=== PATIENT | male | born 1955 | race Caucasian/White ===

== ENCOUNTER → 2022-03-12 14:08 | Outpatient (CLI) | payer MEDICARE, OTHER, SELFPAY | PROVIDERS: Visit Provider Nurse Practitioner Family | DX: R00.2 Palpitations (principal); R00.1 Bradycardia, unspecified; I25.810 Atherosclerosis of coronary artery bypass graft(s) without angina pectoris; R60.9 Edema, unspecified; F17.200 Nicotine dependence, unspecified, uncomplicated; Z86.79 Personal history of other diseases of the circulatory system | CPT/HCPCS: 93270 ==

== ENCOUNTER → 2022-03-13 10:37 | Outpatient (CLI) | payer MEDICARE, OTHER, SELFPAY ==
--- NOTE | 2022-03-13 10:37 | CA_ITS ---
APPROVED REPORT EXAM: Comprehensive 2D, Doppler, and color-flow Echocardiogram Environmental Education Specialist: Heaven Roque RVT Ht: 5 ft 10 in Wt: 132lbs BSA: 1.75 BP: 142/79 mmHg Indications: A-FIB,SMOKER,FATIGUE,WPW,CAD 2D Dimensions LVOT 2.30 cm (M/F) 1.5-2.5 LA Volume 26.90 mL LA Volume Index 15.37 mL/m2 (M/F) 16-34 M-Mode Dimensions RVDd 2.21 cm (0.9-2.6) LA Diam 3.77 cm (1.9-4.0) LVDd 4.89 cm (3.5-5.7) Ao Diam 3.10 cm (2.0-3.7) LVDs 3.14 cm (3.5-5.7) IVSd 1.11 cm (0.6-1.1) PWd 0.71 cm (0.6-1.1) EF (Teich) 65.20% FS 35.80% EDV (Teich) 112.30 mL TAPSE 2.52 (<1.7) ESV (Teich) 39.10 mL LV Diastology E Decel Time 263.00 (160-240 msec) E/A Ratio 1.1 MED E' 11.60 (< 7 cm/sec) E'/MED E' Ratio 6.22 (>14) LAT E' 12.00 (<10 cm/sec) E/LAT E' Ratio 6.01 (>14) Aortic Valve LVOT Max 113.00 (70-110 cm/s) LVOT VTI 21.70 cm AoV Peak Flaco. 197.00 (50-130 cm/s) AO Peak GR. 15.50 mmHg AO Mean GR. 7.90 (<5 mmHg) AO VTI 38.34 (18-25 cm) JOSE (VTI) 2.35 (2.5-4.5 cm2) Mitral Valve MV E Max Flaco. 72.00 (40-130 cm/s) MV A Velocity 68.00 (40-130 cm/s) E/A Ratio 1.06 MV Decel. Time 263.00 (160-240 ms) MV PHT 77.00 ms Pulmonary Valve PV Peak Velocity 77.00 (50-150 cm/s) Tricuspid Valve TR P. Velocity 228.00 cm/s RAP Estimate 10.00 mmHg RVSP 30.90 mmHg Left Ventricle Left atrium is normal size left ventricle is normal size, estimated ejection fraction 55% with no regional wall motion abnormality, diastolic parameters are within normal range. Right Ventricle Right atrium and right ventricle are normal size and contractility. Aortic Valve Aortic valve is minimally thickened and fibrosed there is no aortic stenosis or aortic insufficiency. Mitral Valve Mitral valve grossly normal, there is trace mitral regurgitation. Tricuspid Valve Tricuspid valve grossly normal, there is trace tricuspid regurgitation, tricuspid regurgitation jet velocity is inadequate for calculation of the right ventricular systolic pressure. Pulmonic Valve Pulmonic valve is poorly visualized. Great Vessels Aortic root is normal size. Inferior vena cava is mildly dilated with normal inspiratory collapse. Pericardium No significant pericardial effusion noted. Conclusion 1. Normal left ventricular size, preserved left ventricular systolic function, estimated ejection fraction 55% with no regional wall motion abnormality, diastolic parameters are within normal range. 2. Trace mitral and tricuspid regurgitation. 3. No significant pericardial effusion noted 4. Inferior vena cava is mildly dilated with normal inspiratory collapse. Electronically signed by : Mehdi Webber MD 03/13/2022 14:59:55
== END ==
PROVIDERS: PCP Emergency Medicine; Visit Provider Emergency Medicine
DX: R00.2 Palpitations (principal); R00.1 Bradycardia, unspecified; I25.810 Atherosclerosis of coronary artery bypass graft(s) without angina pectoris; F17.200 Nicotine dependence, unspecified, uncomplicated; Z86.79 Personal history of other diseases of the circulatory system
CPT/HCPCS: 93306

== ENCOUNTER → 2022-03-18 07:29 | Outpatient (CLI) | payer MEDICARE, OTHER, SELFPAY ==
--- NOTE | 2022-03-18 07:36 | NM_ITS ---
APPROVED REPORT Exam: Nuclear Stress Test Indication: H/O TN, TOB USE, FM HX, PALPITATIONS Patient Location: Outpatient Stress Tech: Cristina Zelaya DE Tech:DEBORAH Kolb RT (R)(N)(M) Ht: 5 ft 10 in Wt: 130 lbs HR: 58 bpm BP: 143/75 mmHg BSA: 1.74 m2 TID: 1.29 BMI: 18.6 History: H/O TN, TOB USE, FM HX, PALPITATIONS Procedure: Patient received a 0.4 mg of intravenous Lexiscan, resting heart rate 58 bpm, resting blood pressure 143/75 mmHg, with Lexiscan maximum heart rate achived was 78 bpm which is Less than 85 % of the maximum predicted heart rate and blood pressure was 107/64 mmHg. With Lexiscan, patient denied any complaint of chest pain. Electrocardiogram Resting electrocardiogram showed sinus rhythm, with Lexiscan there is less than 1.[address] segment depression noted from the baseline EKG. The EKG portion of the Lexiscan is nondiagnostic. Cardiac Stress and Resting SPECT Images: Cardiac Stress and Resting SPECT images were obtained using technetium 99m Myoview 32.3 mCi stress and 9.89 mCi at rest. Gated SPECT for analysis of segmental wall motion and calculation of the ejection fraction also done. Prone images were also obtained. Cardiac stress and rest SPECT show uniform myocardial activity without segmental perfusion abnormality, computer derived ejection fraction is 49% with no regional wall motion abnormality, right ventricle is normal size and contractility. Conclusion: 1. The EKG portion of the Lexiscan is nondiagnostic. 2. No scintigraphic evidence of reversible ischemia seen, computer derived ejection fraction is 49% with no regional wall motion abnormality, right ventricle is normal size and contractility. 3. Normal Lexiscan Myoview study. Electronically signed by : Mehdi Webber MD 03/18/2022 19:08:38
--- NOTE | 2022-03-18 09:13 | CA_ITS ---
APPROVED REPORT Exam: Pharmacologic Technologist: Cristina Fernandez, Ht: 5 ft 0 in Wt: 132 lbs BSA: 1.56 m2 HR: 58 bpm BP: 143/75 mmHg Medical History Medications: Levothyroxine,,,,, Aspirin,,,,, Citalopram,,,,, Tylenol,,,,, Magnesium,,,,, Meclizine,,,,, Trazodone,,,,, Vitamin B1,,,,, Aripiprazole,,,,, Ferosul,,,,, Stress Test Details Test: LEXISCAN Reason for pharmacologic stress test: physical limitation. HR Resting HR: 56 bpm Max Heart Rate (APMHR): 155.188173 bpm Max HR Achieved: 79 bpm Target HR (85% APMHR): 131.345470 bpm % of APMHR: 50.97 Recovery HR: 74 bpm BP Resting BP: 143.0/75.0 mmHg Max BP: 143.0/75.0 mmHg Recovery BP: 118.0/67.0 mmHg ECG Resting ECG: sinus casey, 1* AVB, cannot R/O old septal ME, NS ST abnormality brief ectopic atrial rhythm noted. 1.6 second sinus pause noted. Clinical Exercise duration: 04:00 min Highest Stage Achieved: Stress ECG Conclusion Symptoms: None Arrhythmias/Ectopy: Occ PVC, occ PAC. insignificant sinus pauses. ST-T Changes: No significant changes. Conclusion: Unremarkable Lexiscan stress. Myoview images reported separately. Electronically signed by : Mehdi Webber MD 03/18/2022 19:06:12
== END ==
PROVIDERS: PCP Emergency Medicine; Visit Provider Nurse Practitioner Family
DX: F17.200 Nicotine dependence, unspecified, uncomplicated (principal); I25.810 Atherosclerosis of coronary artery bypass graft(s) without angina pectoris; R00.1 Bradycardia, unspecified; R00.2 Palpitations; Z86.79 Personal history of other diseases of the circulatory system; I25.2 Old myocardial infarction
CPT/HCPCS: 78452; 93017; A9502; J2785

== ENCOUNTER 2022-11-22 20:16 | Emergency (ER) | payer MEDICARE, OTHER, SELFPAY ==
--- NOTE | 2022-11-22 20:16 | CT_ITS ---
PROCEDURE INFORMATION: Exam: CT Cervical Spine Without Contrast Exam date and time: 11/22/2022 8:58 PM Age: 67 years old Clinical indication: Injury or trauma; Fall; Additional info: Fall, neck pain TECHNIQUE: Imaging protocol: Computed tomography of the cervical spine without contrast. Radiation optimization: All CT scans at this facility use at least one of these dose optimization techniques: automated exposure control; mA and/or kV adjustment per patient size (includes targeted exams where dose is matched to clinical indication); or iterative reconstruction. REPORTING DATA: Count of CT and Cardiac NM exams in prior 12 months: This patient has received 0 known CTs and 0 known cardiac nuclear medicine studies in the 12 months prior to the current study. COMPARISON: CT HEAD/BRAIN WO CON 11/22/2022 8:56 PM FINDINGS: Bones/joints: No acute fracture. Normal alignment. Moderate disc space narrowing and small endplate osteophytes at C4-C5. No significant disc bulge or herniation. No severe spinal canal stenosis. Multilevel facet and uncovertebral joint hypertrophy. Mild left-sided bony foraminal stenosis at C4-C5. Lungs: Small biapical blebs. Pleural spaces: Chronic appearing biapical pleural scarring. Soft tissues: Unremarkable. IMPRESSION: No acute findings.
--- NOTE | 2022-11-22 20:16 | CT_ITS ---
PROCEDURE INFORMATION: Exam: CT Abdomen And Pelvis With Contrast Exam date and time: 11/22/2022 9:02 PM Age: 67 years old Clinical indication: Injury or trauma; Fall; Additional info: Fall, left flank hematoma TECHNIQUE: Imaging protocol: Computed tomography of the abdomen and pelvis with contrast. Radiation optimization: All CT scans at this facility use at least one of these dose optimization techniques: automated exposure control; mA and/or kV adjustment per patient size (includes targeted exams where dose is matched to clinical indication); or iterative reconstruction. Contrast material: ISOVUE; Contrast volume: 75 ml; Contrast route: IV; REPORTING DATA: Count of CT and Cardiac NM exams in prior 12 months: This patient has received 0 known CTs and 0 known cardiac nuclear medicine studies in the 12 months prior to the current study. COMPARISON: No relevant prior studies available. FINDINGS: Liver: Normal. No mass. Gallbladder and bile ducts: Calcified gallstones. Pancreas: Normal enhancement. No ductal dilation. Spleen: No splenomegaly. Adrenal glands: No mass. Kidneys and ureters: Renal cysts measuring up to 13 mm. No hydronephrosis. Stomach and bowel: Diverticulosis coli without evidence for diverticulitis. Appendix: No evidence of appendicitis. Intraperitoneal space: No significant fluid collection. No free air. Vasculature: Calcified aortic atherosclerosis. No aneurysm. Lymph nodes: No enlarged lymph nodes. Urinary bladder: Urinary bladder wall appears thickened measuring 6 mm. Reproductive: Prostate calcifications. Bones/joints: Degenerative changes. No acute fracture. Soft tissues: Large hematoma of overlying the left flank measuring approximally 5.5 x 12.9 x 13.0 cm with multiple serpiginous hyperdense foci. 8 mm pericardial effusion which is partially visualized. IMPRESSION: 1. Large hematoma of overlying the left flank with active extravasation. 2. Urinary bladder wall appears thickened for which correlation with UA is recommended. 3. Calcified gallstones. 4. Diverticulosis coli without evidence for diverticulitis. 5. 8 mm pericardial effusion which is partially visualized.
--- NOTE | 2022-11-22 20:16 | CT_ITS ---
PROCEDURE INFORMATION: Exam: CT Head Without Contrast Exam date and time: 11/22/2022 8:56 PM Age: 67 years old Clinical indication: Injury or trauma; Fall; Additional info: Fall, head injury TECHNIQUE: Imaging protocol: Computed tomography of the head without contrast. Radiation optimization: All CT scans at this facility use at least one of these dose optimization techniques: automated exposure control; mA and/or kV adjustment per patient size (includes targeted exams where dose is matched to clinical indication); or iterative reconstruction. REPORTING DATA: Count of CT and Cardiac NM exams in prior 12 months: This patient has received 0 known CTs and 0 known cardiac nuclear medicine studies in the 12 months prior to the current study. COMPARISON: No relevant prior studies available. FINDINGS: Brain: Normal. No hemorrhage. Unremarkable white matter. No mass effect. Cerebral ventricles: No ventriculomegaly. Paranasal sinuses: Chronic bilateral maxillary and ethmoid sinus disease. Mastoid air cells: Visualized mastoid air cells are well aerated. Bones/joints: Unremarkable. No acute fracture. Soft tissues: Unremarkable. IMPRESSION: 1. No acute intracranial abnormality. 2. Chronic sinus disease.
[2022-11-22 20:18] VITALS: BP 143/95; PULSE 56; RESP 20; TEMP 36.6; O2SAT 95; BMI 19.3
--- NOTE | 2022-11-22 20:22 | HMH.EDGENADL ---
Discharge Plan Disposition Patient Disposition: Xfer Other Condition: Serious Prescriptions Prescriptions: No Action trazodone 50 mg tablet 50 mg PO HS thiamine HCl (vitamin B1) 100 mg tablet 100 mg PO DAILY meclizine 12.5 mg tablet 12.5 mg PO TID PRN levothyroxine 75 mcg tablet 75 mcg PO DAILY citalopram 20 mg tablet 20 mg PO DAILY magnesium oxide 400 mg (241.3 mg magnesium) tablet 400 mg PO BID ferrous sulfate [FeroSul] 325 mg (65 mg iron) tablet 325 mg PO DAILY acetaminophen 500 mg capsule 500 mg PO Q6H PRN aripiprazole 10 mg tablet 10 mg PO DAILY aspirin [Adult Low Dose Aspirin] 81 mg tablet,delayed release (DR/EC) 81 mg PO DAILY Qty: 30 2RF Referrals Follow up/Referrals: Joel Boggs MD [Primary Care Provider] - See instructions Clinical Impressions Clinical Impression: Hematoma, Trauma, Acute flank pain, Ground-level fall Stand Alone Forms Stand Alone Forms: Transfer Record - ED Discharge ED Provider: Elsa Salgado Adult HPI General Chief complaint: Fall Stated complaint: fall Time Seen by Provider: 11/22/22 20:16 Mode of Arrival: EMS Source of Information: Patient and EMS Limitations: No Limitations Description of Symptoms (Recalled from ER Triage Doc. by RN): EMS reports pt fell around 1730. pt presents with a small football sized, firm raised area on his L flank. pt c/o lower L back pain. pt has a lack to the back of his head, lack to the R elbow, and a skin tear on his RFA. EMS states there was no LOC. History of Present Illness HPI narrative: 67-year-old male presenting to the emergency department with low back, flank pain after a fall. Incident happened earlier today. He was walking on gravel when he lost his balance and fell backwards. He landed on his buttocks and his low back. Struck his head, but denies loss of consciousness. Over the last hour he has developed worsening pain that is located on the left flank and low back. He can feel an area of swelling. Just above his hip bone. No nausea or vomiting. He was able to eat dinner tonight. No medication prior to arrival. He arrives with EMS. Denies any difficulty moving his legs or walking. No neck pain, pain in his arms. Related Data Home Medications Medication Instructions Recorded Confirmed acetaminophen 500 mg capsule 500 mg PO Q6H PRN 03/12/22 03/12/22 aripiprazole 10 mg tablet 10 mg PO DAILY 03/12/22 03/12/22 citalopram 20 mg tablet 20 mg PO DAILY 03/12/22 03/12/22 ferrous sulfate 325 mg (65 mg 325 mg PO DAILY 03/12/22 03/12/22 iron) tablet (FeroSul) levothyroxine 75 mcg tablet 75 mcg PO DAILY 03/12/22 03/12/22 magnesium oxide 400 mg (241.3 mg 400 mg PO BID 03/12/22 03/12/22 magnesium) tablet meclizine 12.5 mg tablet 12.5 mg PO TID PRN 03/12/22 03/12/22 thiamine HCl (vitamin B1) 100 mg 100 mg PO DAILY 03/12/22 03/12/22 tablet trazodone 50 mg tablet 50 mg PO HS 03/12/22 03/12/22 Previous Rx's Medication Instructions Recorded aspirin 81 mg tablet,delayed 81 mg PO DAILY #30 tabs 03/12/22 release (Adult Low Dose Aspirin) Allergies Allergy/AdvReac Type Severity Reaction Status Date / Time No Known Allergies Allergy Verified 11/22/22 20:22 [facility] Disclaimer: The information contained in this section may have been updated after the patient was seen, as this information can be updated by other users. Medical History (Updated 11/22/22 @ 22:02 by Elsa Salgado DO) Afib CAD (coronary artery disease), autologous vein bypass graft Palpitations Auxzl-Kzfocaapn-Fqshf (WPW) syndrome Social History (Updated 03/12/22 @ 15:13 by Doris Huff APRN) Smoking Status: Current every day smoker alcohol intake: never current occupational status: disabled Travel in the last 8 weeks: None ROS Obtained: Yes All systems reviewed & no additional complaints except as documented Constitutional Constitutional: Denies chills, De
[2022-11-22 20:37] LABS: Basophils # 0.1 K/mm3 (0-0.2); Basophils % 0.4 % (0.1-2.0); Eosinophils # 0.3 K/mm3 (0.0-0.4); Eosinophils % 1.5 % (0.1-12.0); Hematocrit 42.6 % (42.0-52.0); Hemoglobin 13.5 g/dL (14.1-18.0); Lymphocytes # 6.2 K/mm3 (0.7-4.5); Lymphocytes % 35.3 % (10-50); Mean Corpuscular HGB Conc 31.6 g/dL (31.8-35.4); Mean Corpuscular Hemoglobin 27.2 pg (27.0-31.2); Mean Corpuscular Volume 86.2 fl (80-94); Mean Platelet Volume 7.9 fl (7.4-10.4); Monocytes # 0.9 K/mm3 (0.1-1.0); Monocytes % 5.1 % (1.7-9.3); Neutrophils # 10.1 K/mm3 (1.8-7.8); Neutrophils % 57.7 % (37.0-80.0); Platelet Count 272 K/mm3 (142-424); Red Blood Count 4.94 M/mm3 (4.60-6.20); Red Cell Distribution Width 16.4 % (11.5-17.5); White Blood Count 17.5 K/mm3 (4.8-10.8)
[2022-11-22 20:40] LABS: MANUAL DIFFERENTIAL MANUAL DIFFERENTIAL (MANUAL DIFF)
[2022-11-22 20:43] LABS: Chloride 91 mmol/L (98-107); Potassium 4.4 mmoL/L (3.5-5.1); Sodium 133 mmol/L (136-145)
[2022-11-22 20:46] LABS: Alanine Aminotransferase 19 U/L (12-78); Albumin Level 4.3 g/dl (3.5-5.0); Albumin/Globulin Ratio 1.6 (1.1-1.8); Alkaline Phosphatase 88 U/L (38-126); Anion Gap 15.4 mEq/L (5-15); Aspartate Amino Transferase 29 U/L (17-59); Bilirubin,Total 0.2 mg/dl (0.2-1.3); Blood Urea Nitrogen 11 mg/dl (9-20); Carbon Dioxide 31 mmol/L (22.0-30.0); Creatinine Clearance Estimated 63 mL/min (50-200); Estimated Glomerular Filt Rate 84 ml/min (>60); GFR (African American) 102 ML/MIN (>60); Globulin 2.7 g/dL (1.3-3.2); INR 1.01 (0.9-1.1); Prothrombin Time 10.9 seconds (10.1-12.5)
[2022-11-22 20:47] LABS: Calcium 9.3 mg/dl (8.4-10.2); Glucose 115 mg/dl (74-100)
[2022-11-22 20:58] LABS: Eosinophils % 1 % (0-3); Lymphocytes % 39 % (10-50); Monocytes % 2 % (2-9); Neutrophils % 58 % (42-76); Platelet Estimate Normal; RBC Morphology Normal; Total Cells Counted 100
--- NOTE | 2022-11-22 21:23 | PC.NURSE ---
call to transfer center, will await call back
--- NOTE | 2022-11-22 21:32 | PC.NURSE ---
ED doctor on phone with [facility]
--- NOTE | 2022-11-22 21:32 | PC.NURSE ---
Dr. Hendricks speaking with [facility]
--- NOTE | 2022-11-22 21:34 | PC.NURSE ---
[facility] notified of need for transfer to [facility]
--- NOTE | 2022-11-22 21:51 | PC.NURSE ---
[facility]erm[facility] notified of patient being transferred to [facility]
[2022-11-22 22:05] VITALS: BP 140/90; PULSE 58; RESP 18; TEMP 36.6; O2SAT 96
== END 2022-11-22 22:09 | disposition other institution (70) ==
PROVIDERS: Emergency Provider Emergency Medicine; PCP Emergency Medicine
DX: S30.1XXA Contusion of abdominal wall, initial encounter (principal); M54.2 Cervicalgia; M54.50 Low back pain, unspecified; I48.91 Unspecified atrial fibrillation; I25.719 Atherosclerosis of autologous vein coronary artery bypass graft(s) with unspecified angina pectoris; I45.6 Pre-excitation syndrome; F17.200 Nicotine dependence, unspecified, uncomplicated; W18.30XA Fall on same level, unspecified, initial encounter
CPT/HCPCS: 70450; 72125; 74177; 80053; 85007; 85025; 85610; 96374; 99285; Q9967

== ENCOUNTER 2024-04-08 16:03 | Emergency (ER) | payer MEDICARE, OTHER, SELFPAY ==
[2024-04-08] VITALS (8 sets, daily range): BP systolic 110–148; BP diastolic 65–78; PULSE 57–64; RESP 16–20; TEMP 37.4; O2SAT 98–100; BMI 15.7
--- NOTE | 2024-04-08 16:07 | PC.NURSE ---
DR BALLARD AT BEDSIDE
--- NOTE | 2024-04-08 16:08 | PC.NURSE ---
Updated Sulema on pts whereabouts
--- NOTE | 2024-04-08 16:13 | CT_ITS ---
PROCEDURE INFORMATION: Exam: CT Cervical Spine Without Contrast Exam date and time: 04/08/2024 4:25 PM Age: 68 years old Clinical indication: Injury or trauma; Fall; Blunt trauma; Additional info: Fall, head trauma TECHNIQUE: Imaging protocol: Computed tomography of the cervical spine without contrast. Radiation optimization: All CT scans at this facility use at least one of these dose optimization techniques: automated exposure control; mA and/or kV adjustment per patient size (includes targeted exams where dose is matched to clinical indication); or iterative reconstruction. COMPARISON: CT CERVICAL SPINE WO CON 09/24/2022 20:58 FINDINGS: Bones: Multilevel degenerative changes of the cervical spine producing multiple levels of mild spinal canal stenosis. Oral cavity: There is a 6 x 5.9 cm soft tissue mass centered in the left process description writer space. Significant remodeling, erosions, and destruction of portions of left mandibular ramus. There are acute angulations of portions of the bone. Lungs: Bilateral apical scarring. Soft tissues: Unremarkable. IMPRESSION: 1. No acute fracture or malalignment of the cervical spine. 2. There is a 6 x 5.9 cm soft tissue mass centered in the left process description writer space. Significant remodeling, erosions, and destruction of portions of left mandibular ramus. There are acute angulations of portions of the bone. This is worrisome for malignant tumor with pathologic mandibular fracture.
--- NOTE | 2024-04-08 16:13 | ED_ITS ---
Discharge Plan Disposition Patient Disposition: Home, Self-Care Prescriptions Prescriptions: New sulfamethoxazole-trimethoprim [Bactrim] 400-80 mg tablet 1 tab PO BID 7 Days Qty: 14 0RF No Action trazodone 50 mg tablet 50 mg PO HS thiamine HCl (vitamin B1) 100 mg tablet 100 mg PO DAILY meclizine 12.5 mg tablet 12.5 mg PO TID PRN levothyroxine 75 mcg tablet 75 mcg PO DAILY citalopram 20 mg tablet 20 mg PO DAILY magnesium oxide 400 mg (241.3 mg magnesium) tablet 400 mg PO BID ferrous sulfate [FeroSul] 325 mg (65 mg iron) tablet 325 mg PO DAILY acetaminophen 500 mg capsule 500 mg PO Q6H PRN aspirin [Adult Low Dose Aspirin] 81 mg tablet,delayed release (DR/EC) 81 mg PO DAILY Qty: 30 2RF aripiprazole 15 mg tablet 15 mg PO DAILY ibuprofen 600 mg tablet 600 mg PO Q6H PRN melatonin 5 mg tablet 5 mg PO HS PRN metoprolol succinate [Toprol XL] 25 mg tablet extended release 24 hr 25 mg PO DAILY Qty: 30 5RF Referrals Follow up/Referrals: Dwain Swenson III, MD [Staff Physician] - See instructions (Establish care with ENT for possible cancerous mass on face as soon as possible.) Provider,MD Marek [Primary Care Provider] - See instructions Activity Restrictions/Add. Instructions Additional Instructions/Restrictions: You are being referred to Dr. Dwain Swenson with the ear nose and throat team. Contact them at the beginning of next week to discuss your facial mass. Follow- up with your primary care physician as well. Use the erythromycin ointment on your eye as prescribed. Take the Bactrim antibiotics prescribed to you as prescribed. If you develop any new or worsening symptoms, or if you become concerned for your health for any reason, return to the emergency department for evaluation Clinical Impressions Clinical Impression: Fall, Abrasion, corneal, Facial mass Print Language Print Language: Sami Discharge ED Provider: Brian Bernardo Adult [facility] General Chief complaint: Fall Stated complaint: Fall Time Seen by Provider: 04/08/24 16:13 Mode of Arrival: EMS Source of Information: Patient and EMS Limitations: No Limitations Description of Symptoms (Recalled from ER Triage Doc. by RN): pt is a [facility] resident and was walking to [employer]ift and tripped and fell face first into gravel. denies any loc and complains of right eye injury, left side face abcess, and left wrist pain. fbs [id number] History of Present Illness HPI narrative: Nando Stauffer is a 68-year-old male with a history of Lglik-Adfeveqcp-Qxrzw syndrome who presents via EMS from scene after a ground-level fall. Patient states that he was walking to the [employer] store when he tripped on an uneven area of the pavement, causing him to fall forward. Patient states that he was able to brace himself some, however he did hit his head on the pavement. He denies any loss of consciousness but states that he felt dazed afterwards and was not able to get up. He is complaining of foreign body sensation in his right eye as well as pain to his left wrist. He denies any neck pain, chest pain, abdominal pain, shortness of breath, back pain or headache. Patient states that he does not have any blurry vision or vision loss. He believes he may have a rock in his right eye. He states that he did not have any symptoms preceding this. Patient states that he takes a daily aspirin but denies any blood thinner use. Related Data Home Medications ?Medication ?Instructions ?Recorded ?Confirmed acetaminophen 500 mg capsule 500 mg PO Q6H PRN 03/12/22 03/12/22 citalopram 20 mg tablet 20 mg PO DAILY 03/12/22 03/12/22 ferrous sulfate 325 mg (65 mg 325 mg PO DAILY 03/12/22 03/12/22 iron) tablet (FeroSul) levothyroxine 75 mcg tablet 75 mcg PO DAILY 03/12/22 03/12/22 magnesium oxide 400 mg (241.3 mg 400 mg PO BID 03/12/22 03/12/22 magnesium) tablet meclizine 12.5 mg tablet 12.5 mg PO TID PRN 03/12/22 03/12/22 thiamine HCl (vitamin B1) 100 mg 100 mg PO DAILY 03/12/22 03/12/22 tablet trazodone 50 mg tablet 50 mg PO HS 03/12/22 03/12/22 aripiprazole 15 mg tablet 15 mg PO DAILY 09/30/23 09/30/23 ibuprofen 600 mg tablet 600 mg PO Q6H PRN 09/30/23 09/30/23 melatonin 5 mg tablet 5 mg PO HS PRN 09/30/23 09/30/23 Previous Rx's ?Medication ?Instructions ?Recorded aspirin 81 mg tablet,delayed 81 mg PO DAILY #30 tabs 03/12/22 release (Adult Low Dose Aspirin) metoprolol succinate 25 mg 25 mg PO DAILY #30 tabs 03/15/24 tablet,extended release 24 hr (Toprol XL) sulfamethoxazole 400 1 tab PO BID 7 days #14 tabs 04/08/24 mg-trimethoprim 80 mg tablet (Bactrim) Allergies Allergy/AdvReac Type Severity Reaction Status Date / Time No Known Allergies Allergy Verified 09/30/23 11:03 [facility] Disclaimer: The information contained in this section may have been updated after the patient was seen, as this information can be updated by other users. Medical History Afib Aqpor-Bivfxsgqd-Rppua (WPW) syndrome CAD (coronary artery disease), autologous vein bypass graft Palpitations Social History Smoking Status: Current every day smoker alcohol intake: never current occupational status: disabled Travel in the last 8 weeks: None Other Medical History Have you received the Pneumonia Vaccine: Yes ROS Obtained: Yes Systems reviewed as appropriate & no additional complaints except as documented Physical Exam General General appearance: alert and in no apparent distress Comment: Cervical collar in place Head Head exam: other (Scattered abrasions over the right eyebrow, right mosque area and right cheek. Midface is stable. Small fluctuant abscess to the left cheek) Eye Eye exam: Present normal appearance, PERRL, EOMI, conjunctival redness (Right) and other (Gravel and debris within the lower eyelid. Negative Thania sign with fluorescein staining. Small corneal abrasion at the 7 o'clock position. No scleral lacerations.) ENT ENT exam: Present normal external ear exam Neck Neck exam: Present full ROM Chest Chest inspection: Present symmetric chest wall rise Respiratory Respiratory exam: Present normal lung sounds bilaterally; Absent respiratory distress Cardiovascular Cardiovascular exam: Present regular rate and normal rhythm Abdominal Exam Abdominal exam: Present soft; Absent tenderness or guarding exam: Present deferred Extremities Exam Extremities exam: Present other (Mild tenderness to palpation over the radial aspect of the volar wrist. No deformities. 2+ radial pulses bilaterally.) Back Exam Back exam: Present normal inspection Neurological Exam Neurological exam: Present alert, oriented X3 and other (5 out of 5 strength in all extremities.) Psychiatric Psychiatric exam: Present normal affect Skin Skin exam: Present warm and dry Medical Decision Making Medical Records Screening: Per USPSTF and CDC recommendations, given the prevalence of disease in our region, it is our hospital?s policy to screen for HIV and viral Hepatitis for all patients aged 18 and over and those with ongoing risk factors. Dave Inquiry Pt receiving controlled substance: No Vital Signs: 04/08/24 16:03 04/08/24 16:30 04/08/24 17:00 Temperature 99.4 F Temperature Source Oral Pulse Rate 64 58 L Pulse Rate [Right Radial] 60 Respiratory Rate 20 18 18 Blood Pressure 112/65 110/69 Blood Pressure [Right Arm] 126/78 Blood Pressure Mean 80 77 Blood Pressure Mean [Right Arm] 94 02 Sat by Pulse Oximetry 98 99 99 Oxygen Delivery Method Room Air 04/08/24 17:30 04/08/24 18:00 04/08/24 18:31 Temperature Temperature Source Pulse Rate 60 62 64 Pulse Rate [Right Radial] Respiratory Rate 16 Blood Pressure 123/72 134/74 141/78 H Blood Pressure [Right Arm] Blood Pressure Mean 89 83 89 Blood Pressure Mean [Right Arm] 02 Sat by Pulse Oximetry 100 100 99 Oxygen Delivery Method Room Air 04/08/24 19:00 Temperature Temperature Source Pulse Rate 61 Pulse Rate [Right Radial] Respiratory Rate Blood Pressure 148/75 H Blood Pressure [Right Arm] Blood Pressure Mean 82 Blood Pressure Mean [Right Arm] 02 Sat by Pulse Oximetry 98 Oxygen Delivery Method Orders (Tests/Meds): ED MEDICATIONS Discontinued Medications Generic Name Dose Route Start Last Admin Trade Name Freq PRN Reason Stop Dose Admin Erythromycin 0.5 gm 04/08/24 16:46 04/08/24 16:53 Erythromycin Base 1 Gm Oint...G. OP 04/08/24 16:47 0.5 gm ONCE ONE Administration Fluorescein Sodium 1 mg 04/08/24 16:13 04/08/24 16:53 Fluorescein Sodium 1mg Strip OP 04/08/24 16:14 1 mg ONCE ONE Administration Tetracaine HCl 0 ml 04/08/24 16:13 04/08/24 16:53 Tetracaine 0.5% Opth Denisha 15ml OP 04/08/24 16:14 15 ml ONCE ONE Administration ORDERS Category Date Time Status CT cervical spine wo con Stat Cat Scan 04/08/24 16:[address] head/brain wo con Stat Cat Scan 04/08/24 16:13 Completed Wrist XR left 2 views [XR wrist LT 2V] Stat Exams 04/08/24 16:16 Completed Medical Decision Narrative: Nando Stauffer is a 68-year-old male with a past medical history significant for Wyxmo-Qaqmkppht-Uobik syndrome who presents to the emergency department via EMS after a ground-level fall resulting in right facial abrasions, foreign body sensation in his right eye as well as pain in his left wrist. On arrival, patient's vital signs are within normal limits. He is breathing comfortably on room air. Patient has mild tenderness over the left wrist but no deformities with full range of motion and pulses intact. He has scattered abrasions over the right side of his face but his midface is stable. Extraocular movements are intact. Visual lester are intact. Pupils equal round and reactive to light. He does have injected conjunctive a on the right. There was a fair amount of small gravel and debris within the lower eyelid that was removed with irrigation and a small Q-tip. On fluorescein stain, patient had a small corneal abrasion at the 7 o'clock position but negative Thania sign and no other evidence of open globe injuries. Differential diagnosis includes: Intracranial hemorrhage, facial bone fracture, cervical spine fracture, scleral laceration, corneal abrasion, open globe injury, traumatic iritis, among others. Patient's workup in the emergency department included: CT head without contrast, CT C-spine without contrast, left wrist x-ray. Patient was offered medication for pain, however he said his pain was well-controlled. Labs were considered, however given the mechanical nature of the patient's fall, reassuring vital signs and overall well appearance on physical exam, these are not indicated at this time as they would not change ED management. Patient reported improvement of his symptoms after thorough irrigation of his eyelid and removal of the gravel/debris. CT imaging was interpreted by me personally prior to official radiology read, which demonstrated no acute intracranial hemorrhage. Per radiology, there is a large left-sided pharyngeal and facial mass measuring up to at least 6 cm with bony destruction concerning for malignancy. No cervical spine fractures or malalignment. See radiology reports for final details. X-ray imaging of the left wrist was also interpreted by me personally demonstrates no acute fractures or dislocations. Patient was provided erythromycin ointment for his corneal abrasion. Patient also noted to have a small abscess to the left cheek that had previously been drained. Patient is not currently on antibiotics for this. [facility] was contacted and they note that this was tested recently and tested positive for MRSA. Given this, we will start patient on a course of Bactrim. Patient is being referred to ENT, Dr. Dwain Swenson, for follow-up regarding his facial mass. This was discussed with the patient and he demonstrated understanding that he needs follow-up as this is concerning for possible cancer. He is being sent with a prescription for Bactrim as his cultures allegedly tested positive for MRSA. He is being sent with erythromycin ointment for the corneal abrasion. Return precautions were given. All questions were answered. He remained hemodynamically stable and was discharged from the emergency department Critical Care Critical Care Time Critical Care Time: No
--- NOTE | 2024-04-08 16:13 | CT_ITS ---
PROCEDURE INFORMATION: Exam: CT Head Without Contrast Exam date and time: 04/08/2024 4:25 PM Age: 68 years old Clinical indication: Injury or trauma; Fall; Blunt trauma (contusions or hematomas); Additional info: Fall, head trauma TECHNIQUE: Imaging protocol: Computed tomography of the head without contrast. Radiation optimization: All CT scans at this facility use at least one of these dose optimization techniques: automated exposure control; mA and/or kV adjustment per patient size (includes targeted exams where dose is matched to clinical indication); or iterative reconstruction. COMPARISON: CT HEAD/BRAIN WO CON 11/22/2022 8:56 PM FINDINGS: Brain: See Cerebral ventricles finding. Moderate generalized intracranial atrophy with periventricular white matter hypodensity, suggesting chronic small vessel white matter ischemic changes. No definite evidence for acute infarct. Otherwise, normal talley-white matter interfaces. No focal mass lesions. No intra-axial or extra-axial fluid collections, hemorrhage or mass. No mass effect or midline shift. The pineal, sellar, brainstem, cerebellum regions appear grossly unremarkable. Cerebral ventricles: The ventricles, sulci, cisterns appear prominent, related to generalized atrophy. Paranasal sinuses: Mucosal thickening within left maxillary sinus. Potential chronic maxillary sinusitis. The visualized paranasal sinuses appear otherwise clear. Mastoid air cells: The visualized bilateral mastoid air cells appear clear. Orbital cavities: The optic globes appear unremarkable and symmetrical. Bones: Diffusely decreased bone density. No visualized acute traumatic bony fracture identified. Soft tissues: Large mass lesion identified within the deep left facial region. There is left-sided irregular wall thickening of the pharynx. Adjacent mass extends into the soft tissues out to the left skin surface and appears heterogeneous measuring approximately 6 cm transverse diameter, 5.5 cm anterior-posterior diameter. This mass is incompletely visualized in the craniocaudal dimension measuring greater than 4 cm. This mass is heterogeneous with likely areas of solid cystic components measuring 60 Hounsfield units. There is adjacent bony destruction involving the left posterolateral maxillary wall and left posterior maxilla. There is adjacent bony destruction involving the left mandible. The mandible is encased by this mass. There is adjacent soft tissue edema and skin thickening. Vasculature: Unremarkable. Other findings: Limited study with motion artifact. IMPRESSION: 1. Large left-sided pharyngeal and facial mass measuring up to at least 6 cm with bony destruction. This is highly concerning for malignancy. 2. No evidence for acute intracranial abnormality. 3. Moderate generalized intracranial atrophy with likely chronic ischemic changes.
--- NOTE | 2024-04-08 16:16 | XR_ITS ---
PROCEDURE INFORMATION: Exam: XR Left Wrist Exam date and time: 04/08/2024 4:21 PM Age: 68 years old Clinical indication: Injury or trauma; Fall; Blunt trauma (contusions or hematomas); Wrist; Left; Additional info: Fall, left wrist pain TECHNIQUE: Imaging protocol: Radiologic exam of the left wrist. Views: 1 or 2 views. COMPARISON: CR XR WRIST LT 2V 08/04/2024 16:21 FINDINGS: Bones/joints: No acute fracture or dislocation. Soft tissues: Normal. IMPRESSION: No acute fracture or dislocation.
[2024-04-08] MEDS: ERYTHROMYCIN BASE 1 GM OINT...G. 0.5 GM OP (16:53)
[2024-04-08] MEDS: FLUORESCEIN SODIUM 1MG STRIP 1 MG OP (16:53)
[2024-04-08] MEDS: TETRACAINE 0.5% OPTH SOL 15ML OP (16:53)
--- NOTE | 2024-04-08 19:16 | PC.NURSE ---
Called [facility] to let them know that the patient is ready to be discharged. [facility] employee said there is no licensed refrigerated company driver until 22:30, [facility] employee stated she would call and let her network services project manager know.
== END 2024-04-08 19:39 | disposition home or self-care (01) ==
PROVIDERS: Emergency Provider Student in an Organized Health Care Education/Training Program
DX: S05.00XA Injury of conjunctiva and corneal abrasion without foreign body, unspecified eye, initial encounter (principal); M25.532 Pain in left wrist; R22.0 Localized swelling, mass and lump, head; H57.11 Ocular pain, right eye; W01.198A Fall on same level from slipping, tripping and stumbling with subsequent striking against other object, initial encounter; Y93.01 Activity, walking, marching and hiking; Y92.89 Other specified places as the place of occurrence of the external cause
CPT/HCPCS: 70450; 72125; 73100; 99284

== ENCOUNTER 2024-04-09 01:15 | Emergency (ER) | payer MEDICARE, OTHER, SELFPAY ==
[2024-04-09 01:16] VITALS: BP 113/78; PULSE 58; RESP 18; TEMP 36.6; O2SAT 98; BMI 18.2
--- NOTE | 2024-04-09 01:18 | HMH.EDGENADL ---
Discharge Plan Disposition Patient Disposition: Home, Self-Care Prescriptions Prescriptions: No Action trazodone 50 mg tablet 50 mg PO HS thiamine HCl (vitamin B1) 100 mg tablet 100 mg PO DAILY meclizine 12.5 mg tablet 12.5 mg PO TID PRN levothyroxine 75 mcg tablet 75 mcg PO DAILY citalopram 20 mg tablet 20 mg PO DAILY magnesium oxide 400 mg (241.3 mg magnesium) tablet 400 mg PO BID ferrous sulfate [FeroSul] 325 mg (65 mg iron) tablet 325 mg PO DAILY acetaminophen 500 mg capsule 500 mg PO Q6H PRN aspirin [Adult Low Dose Aspirin] 81 mg tablet,delayed release (DR/EC) 81 mg PO DAILY Qty: 30 2RF aripiprazole 15 mg tablet 15 mg PO DAILY ibuprofen 600 mg tablet 600 mg PO Q6H PRN melatonin 5 mg tablet 5 mg PO HS PRN metoprolol succinate [Toprol XL] 25 mg tablet extended release 24 hr 25 mg PO DAILY Qty: 30 5RF sulfamethoxazole-trimethoprim [Bactrim] 400-80 mg tablet 1 tab PO BID 7 Days Qty: 14 0RF Activity Restrictions/Add. Instructions Additional Instructions/Restrictions: Please take the Bactrim as prescribed to treat the possible infection on the left side of your jaw. Please use the erythromycin ointment as prescribed for treatment of your corneal abrasion in your right eye. Please follow-up with the ENT as was previously discussed when you were seen here earlier today. Clinical Impressions Clinical Impression: Abrasion, corneal, Mass of face Print Language Print Language: South African Discharge ED Provider: Martin Lofton Adult HPI General Stated complaint: recheck Time Seen by Provider: 04/09/24 01:18 History of Present Illness HPI narrative: 68-year-old male, resident at [facility] presents to the ER for reevaluation. He was seen here earlier today and had extensive workup. See previous note for full details. He was sent back because he is continue to have some oozing from his jaw and drainage from the right eye. Patient reports no new falls or trauma. Denies any new symptoms. Related Data Home Medications ?Medication ?Instructions ?Recorded ?Confirmed acetaminophen 500 mg capsule 500 mg PO Q6H PRN 03/12/22 03/12/22 citalopram 20 mg tablet 20 mg PO DAILY 03/12/22 03/12/22 ferrous sulfate 325 mg (65 mg 325 mg PO DAILY 03/12/22 03/12/22 iron) tablet (FeroSul) levothyroxine 75 mcg tablet 75 mcg PO DAILY 03/12/22 03/12/22 magnesium oxide 400 mg (241.3 mg 400 mg PO BID 03/12/22 03/12/22 magnesium) tablet meclizine 12.5 mg tablet 12.5 mg PO TID PRN 03/12/22 03/12/22 thiamine HCl (vitamin B1) 100 mg 100 mg PO DAILY 03/12/22 03/12/22 tablet trazodone 50 mg tablet 50 mg PO HS 03/12/22 03/12/22 aripiprazole 15 mg tablet 15 mg PO DAILY 09/30/23 09/30/23 ibuprofen 600 mg tablet 600 mg PO Q6H PRN 09/30/23 09/30/23 melatonin 5 mg tablet 5 mg PO HS PRN 09/30/23 09/30/23 Previous Rx's ?Medication ?Instructions ?Recorded aspirin 81 mg tablet,delayed 81 mg PO DAILY #30 tabs 03/12/22 release (Adult Low Dose Aspirin) metoprolol succinate 25 mg 25 mg PO DAILY #30 tabs 03/15/24 tablet,extended release 24 hr (Toprol XL) sulfamethoxazole 400 1 tab PO BID 7 days #14 tabs 04/08/24 mg-trimethoprim 80 mg tablet (Bactrim) Allergies Allergy/AdvReac Type Severity Reaction Status Date / Time No Known Allergies Allergy Verified 09/30/23 11:03 [facility] Disclaimer: The information contained in this section may have been updated after the patient was seen, as this information can be updated by other users. Medical History Afib Lznyu-Atvgxhjpz-Kgjyc (WPW) syndrome CAD (coronary artery disease), autologous vein bypass graft Palpitations Social History Smoking Status: Current every day smoker alcohol intake: never current occupational status: disabled Travel in the last 8 weeks: None Other Medical History Have you received the Pneumonia Vaccine: Yes ROS Obtained: Yes All systems reviewed & no additional complaints except as documented Physical Exam General General appearance: alert and in no apparent distress Head Head exam: atraumatic and normocephalic Eye Eye exam: Present PERRL, EOMI, conjunctival redness and discharge (Mild right mucousy) ENT ENT exam: Present other (Draining wound at the angle of the left jaw. Abrasions on the right cheek) Neck Neck exam: Present normal inspection and full ROM Chest Chest inspection: Present normal inspection and symmetric chest wall rise; Absent tenderness Respiratory Respiratory exam: Present normal lung sounds bilaterally; Absent respiratory distress Cardiovascular Cardiovascular exam: Present regular rate and normal rhythm Abdominal Exam Abdominal exam: Present soft; Absent distention, tenderness or guarding Extremities Exam Extremities exam: Present normal inspection; Absent edema or joint swelling Back Exam Back exam: Present normal inspection; Absent tenderness Neurological Exam Neurological exam: Present alert and oriented X3; Absent motor sensory deficit Psychiatric Psychiatric exam: Present normal affect and normal mood Skin Skin exam: Present warm, dry and normal color Lymphatic Lymphatic Findings: no adenopathy Medical Decision Making Medical Records Medical records reviewed: Yes I reviewed the patient's medical records. Screening: Per USPSTF and CDC recommendations, given the prevalence of disease in our region, it is our hospital?s policy to screen for HIV and viral Hepatitis for all patients aged 18 and over and those with ongoing risk factors. Dave Inquiry Pt receiving controlled substance: No Dave was queried for this patient: No Lab Data Lab results reviewed: Yes I reviewed the patient's lab results. Medical Decision Narrative: 68-year-old male with history as documented above presents for reassessment.. History was obtained via interactive discussion with patient, EMS, chart review. On arrival, patient is [afebrile, hemodynamically stable, satting appropriately, alert, oriented x4, GCS 15], moving all extremities spontaneously. Full physical exam performed and significant for draining wound to the left angle of the jaw, mucousy drainage from the right eye. Differential includes but is not limited to malignancy, abscess, cyst, cellulitis, ocular foreign body, conjunctivitis, corneal abrasion. Please review the note from where the patient was a few hours ago. They did a full workup which demonstrated right corneal abrasion for which he was given erythromycin as well as possible abscess/cellulitis of the left jaw for which they prescribed Bactrim. They arranged follow-up with ENT for the left jaw mass that was noted on CT scan. I rediscussed these findings with patient and he has no additional concerns. He was discharged in stable condition. Procedures Risk/Benefits of Procedure(s) Were Explained: Yes Critical Care Critical Care Time Critical Care Time: No
[2024-04-09 01:32] VITALS: O2SAT 97
[2024-04-09 01:38] VITALS: BP 112/70; PULSE 56; RESP 18; TEMP 36.6; O2SAT 97
== END 2024-04-09 02:15 | disposition home or self-care (01) ==
PROVIDERS: Emergency Provider Emergency Medicine
DX: S05.00XA Injury of conjunctiva and corneal abrasion without foreign body, unspecified eye, initial encounter (principal); R22.0 Localized swelling, mass and lump, head
CPT/HCPCS: 99281

== ENCOUNTER 2024-04-13 10:11 | Emergency (ER) | payer MEDICARE, OTHER, SELFPAY ==
[2024-04-13] VITALS (10 sets, daily range): BP systolic 111–147; BP diastolic 50–83; PULSE 57–73; RESP 12–18; TEMP 36.7–37; O2SAT 95–98; BMI 18.2
--- NOTE | 2024-04-13 10:28 | PC.NURSE ---
Dr. Morris at bedside
--- NOTE | 2024-04-13 10:37 | [facility].EDGENADL ---
Discharge Plan Disposition Patient Disposition: Xfer Short-Term Hosp Chief Complaint: Fall Prescriptions Prescriptions: No Action trazodone 50 mg tablet 50 mg PO HS thiamine HCl (vitamin B1) 100 mg tablet 100 mg PO DAILY meclizine 12.5 mg tablet 12.5 mg PO TID PRN levothyroxine 75 mcg tablet 75 mcg PO DAILY citalopram 20 mg tablet 20 mg PO DAILY magnesium oxide 400 mg (241.3 mg magnesium) tablet 400 mg PO BID ferrous sulfate [FeroSul] 325 mg (65 mg iron) tablet 325 mg PO DAILY acetaminophen 500 mg capsule 500 mg PO Q6H PRN aspirin [Adult Low Dose Aspirin] 81 mg tablet,delayed release (DR/EC) 81 mg PO DAILY Qty: 30 2RF aripiprazole 15 mg tablet 15 mg PO DAILY ibuprofen 600 mg tablet 600 mg PO Q6H PRN melatonin 5 mg tablet 5 mg PO HS PRN metoprolol succinate [Toprol XL] 25 mg tablet extended release 24 hr 25 mg PO DAILY Qty: 30 5RF sulfamethoxazole-trimethoprim [Bactrim] 400-80 mg tablet 1 tab PO BID 7 Days Qty: 14 0RF Referrals Follow up/Referrals: Provider,Referral, MD [Primary Care Provider] - See instructions Clinical Impressions Clinical Impression: Fall, Clavicle fracture, Facial trauma, Jaw mass, Hypokalemia, Occlusion of left vertebral artery Print Language Print Language: Telugu Discharge ED Provider: Omega [facility] Adult HPI General Chief complaint: Fall Stated complaint: fall Time Seen by Provider: 04/13/24 10:14 Mode of Arrival: EMS Source of Information: Patient, Spouse and EMS Limitations: No Limitations Description of Symptoms (Recalled from ER Triage Doc. by RN): PT BROUGHT VIA EMS FOR FALL AT LOCAL [place]AS [place]. PT REPORTS HE WAS WALKING AND BECAME DIZZY. FALL ON GRAVEL. PT C/O HEAD AND NECK PAIN, RECENTLY HAD SAME SYMPTOMS AND FALL A FEW DAYS AGO History of Present Illness HPI narrative: Patient is a 68-year-old male with past medical history of facial mass, smoking, coronary artery disease, with Parkinson's White not on medical therapy currently does not have a PCP who presents emergency department for evaluation of traumatic injury sustained in a fall. Patient was walking to a gas station where he says over the last 2 months he has had to use a cane on his right side where he did not have to use 1 before. He fell striking his forehead resulting in a wound over his right periorbital area, he has associated right-sided shoulder pain, midline neck pain, right knee pain. No other acute complaints at this time. Patient was seen on the of this month and there is a 6 x 5.9 cm soft tissue mass in the left dross puller space with associated pathologic mandibular fracture. Noncontrasted CT scan of the head no acute intracranial abnormality. Patient was discharged home at that time with outpatient ENT follow-up however he is not coordinated this, he has fallen in the interim and was seen by Dr. Lofton and now fell again and is seeing me today. He states that he is intermittently weak on his right side and is not passing out when he falls rather he just falls and remembers the entire episode. No loss of consciousness today. No anticoagulants. Related Data Home Medications ?Medication ?Instructions ?Recorded ?Confirmed acetaminophen 500 mg capsule 500 mg PO Q6H PRN 03/12/22 03/12/22 citalopram 20 mg tablet 20 mg PO DAILY 03/12/22 03/12/22 ferrous sulfate 325 mg (65 mg 325 mg PO DAILY 03/12/22 03/12/22 iron) tablet (FeroSul) levothyroxine 75 mcg tablet 75 mcg PO DAILY 03/12/22 03/12/22 magnesium oxide 400 mg (241.3 mg 400 mg PO BID 03/12/22 03/12/22 magnesium) tablet meclizine 12.5 mg tablet 12.5 mg PO TID PRN 03/12/22 03/12/22 thiamine HCl (vitamin B1) 100 mg 100 mg PO DAILY 03/12/22 03/12/22 tablet trazodone 50 mg tablet 50 mg PO HS 03/12/22 03/12/22 aripiprazole 15 mg tablet 15 mg PO DAILY 09/30/23 09/30/23 ibuprofen 600 mg tablet 600 mg PO Q6H PRN 09/30/23 09/30/23 melatonin 5 mg tablet 5 mg PO HS PRN 09/30/23 09/30/23 Previous Rx's ?Medication ?Instructions ?Recorded aspirin 81 mg tablet,delayed 81 mg PO DAILY #30 tabs 03/12/22 release (Adult Low Dose Aspirin) metoprolol succinate 25 mg 25 mg PO DAILY #30 tabs 03/15/24 tablet,extended release 24 hr (Toprol XL) sulfamethoxazole 400 1 tab PO BID 7 days #14 tabs 04/08/24 mg-trimethoprim 80 mg tablet (Bactrim) Allergies Allergy/AdvReac Type Severity Reaction Status Date / Time No Known Allergies Allergy Verified 09/30/23 11:03 [facility] Disclaimer: The information contained in this section may have been updated after the patient was seen, as this information can be updated by other users. 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 CAD (coronary artery disease), autologous vein bypass graft Palpitations Social History Smoking Status: Current every day smoker alcohol intake: never current occupational status: disabled Travel in the last 8 weeks: None Other Medical History Have you received the Pneumonia Vaccine: Yes ROS Obtained: Yes Systems reviewed as appropriate & no additional complaints except as documented Physical Exam General General appearance: alert and in no apparent distress Head Head exam: normocephalic and other (Swelling over the right supraorbital area with associated 2.5 cm curvilinear laceration without involvement of the eyelid. Tender indurated left cheek and jaw.) Eye Eye exam: Present PERRL and EOMI ENT ENT exam: Present mucous membranes moist Neck Neck exam: Present normal inspection Chest Chest inspection: Present normal inspection and symmetric chest wall rise Respiratory Respiratory exam: Present normal lung sounds bilaterally; Absent respiratory distress Cardiovascular Cardiovascular exam: Present regular rate and normal rhythm Abdominal Exam Abdominal exam: Present soft; Absent tenderness Extremities Exam Extremities exam: Present other (Abrasion left knee, tender left shoulder without overlying bruising. 3 out of 5 strength right upper extremity and right lower extremity. 5 out of 5 strength left upper and left lower extremity. Palpable bilateral radial pulses.) Neurological Exam Neurological exam: Present alert, oriented X3 and CN II-XII intact Psychiatric Psychiatric exam: Present normal affect Skin Skin exam: Present warm and dry Medical Decision Making Medical Records Screening: Per USPSTF and CDC recommendations, given the prevalence of disease in our region, it is our hospital?s policy to screen for HIV and viral Hepatitis for all patients aged 18 and over and those with ongoing risk factors. Dave Inquiry Pt receiving controlled substance: No Vital Signs: 04/13/24 10:11 04/13/24 10:30 04/13/24 11:00 Temperature 98.6 F Temperature Source Oral Pulse Rate 58 L 57 L Pulse Rate [Apical] 64 Respiratory Rate 18 17 12 Blood Pressure 147/83 H 131/56 L Blood Pressure [Left Arm] 142/61 H Blood Pressure Mean 98 Blood Pressure Mean [Left Arm] 88 Blood Pressure Source [Left Arm] Automatic Cuff Blood Pressure Position [Left Arm] Sitting 02 Sat by Pulse Oximetry 98 96 95 Oxygen Delivery Method Room Air Room Air 04/13/24 12:01 04/13/24 12:30 Temperature Temperature Source Pulse Rate 64 58 L Pulse Rate [Apical] Respiratory Rate 15 13 Blood Pressure 111/50 L 119/57 L Blood Pressure [Left Arm] Blood Pressure Mean 70 75 Blood Pressure Mean [Left Arm] Blood Pressure Source [Left Arm] Blood Pressure Position [Left Arm] 02 Sat by Pulse Oximetry 95 97 Oxygen Delivery Method Room Air Room Air Lab Data Lab Results 04/13/24 10:40: WBC 9.8, RBC 4.60, Hgb 13.1 L, Hct 39.7 L, MCV 86.4, MCH 28.5, MCHC 33.0, RDW 13.7, Plt Count 327, MPV 7.6, Neut % (Auto) 83.9 H, Lymph % (Auto) 9.1 L, Johnson % (Auto) 5.2, Eos % (Auto) 1.4, Baso % (Auto) 0.5, Neut # (Auto) 8.2 H, Lymph # (Auto) 0.9, Johnson # (Auto) 0.5, Eos # (Auto) 0.1, Baso # (Auto) 0.1, Sodium 135 L, Potassium 3.0 L, Chloride 96 L, Carbon Dioxide 38 H, Anion Gap 4.0 L, BUN 5 L, Creatinine 0.70, Estimated Creat Clear 58, Estimated GFR 112, Est GFR ( Amer) 136, Glucose 173 H, Calcium 10.4 H, Magnesium 1.7, Total Bilirubin 0.5, AST 18, ALT 12, Alkaline Phosphatase 103, Total Protein 7.1, Albumin 3.8, Globulin 3.3 H, Albumin/Globulin Ratio 1.2 04/13/24 10:40 04/13/24 10:40 Orders (Tests/Meds): ED MEDICATIONS Generic Name Dose Route Start Last Admin Trade Name Freq PRN Reason Stop Dose Admin Potassium Chloride/Water 100 mls @ 50 mls/hr 04/13/24 11:15 04/13/24 12:10 Potassium Chloride 20meq/100ml Ivpb IV 04/13/24 15:14 50 mls/hr Q2H LARY Administration Discontinued Medications Generic Name Dose Route Start Last Admin Trade Name Freq PRN Reason Stop Dose Admin Lactated Ringer's 1,000 mls @ 999 mls/hr 04/13/24 11:58 04/13/24 12:10 Lactated Ringer's 1000 Ml Bag IV 04/13/24 12:58 999 mls/hr .Q1H1M ONE Administration Iopamidol 80 ml 04/13/24 11:21 04/13/24 11:22 Iopamidol-370 (76%);100ml Bottle IV 04/13/24 11:22 80 ml ONCE ONE Administration Lidocaine/Epinephrine 5 ml 04/13/24 10:53 04/13/24 10:58 Lidocaine 1% W/Epi 1:100,000 20ml Vial IJ 04/13/24 10:54 5 ml ONCE ONE Administration Sodium Chloride 50 ml 04/13/24 11:21 04/13/24 11:22 0.9 % Sodium Chloride 50 Ml Vial IV 04/13/24 11:22 50 ml ONCE ONE Administration Sodium Chloride 10 ml 04/13/24 11:21 04/13/24 11:22 Sodium Chloride 0.9% 10ml Syr (Rad Only) IV 04/13/24 11:22 10 ml ONCE ONE Administration Tetanus/Reduced Diphtheria/Acell Pertussis 0.5 ml 04/13/24 10:43 04/13/24 10:54 Tet/Diphth/Pert-Adult 0.5ml Syringe IM 04/13/24 10:44 0.5 ml .ONCE ONE Administration ORDERS Category Date Time Status CT angio head Stat Cat Scan 04/13/24 10:[address] angio neck Stat Cat Scan 04/13/24 10:[address] cervical spine wo con Stat Cat Scan 04/13/24 10:[address] facial bones wo con Stat Cat Scan 04/13/24 10:[address] head/brain wo con Stat Cat Scan 04/13/24 10:41 Completed Knee XR right 2 views [XR knee RT 2V] Stat Exams 04/13/24 10:41 Completed Shoulder XR right miminum 2 views [XR shoulder RT min Exams 04/13/24 10:41 Completed 2V] Stat CBC w/Auto Diff [Complete Blood Count Auto Diff] Stat Lab 04/13/24 10:40 Completed CMP [Comprehensive Metabolic Panel] Stat Lab 04/13/24 10:40 Completed MG [Magnesium] Stat Lab 04/13/24 10:40 Completed EKG Request [ECG Request] Stat Y 04/13/24 10:42 Ordered ECG Data Tracing #1: Independently interpreted by me rate is 55, rhythm is irregular, axis is normal, no ST elevation in anatomical contiguous leads, right bundle branch block no ST elevation in anatomical contiguous leads, intermittent PVCs Medical Decision Narrative: In summary patient is a 68-year-old male past medical history described above who presents emergency department for evaluation of traumatic injury sustained in a fall. Patient is hemodynamically stable nontoxic-appearing upon arrival, afebrile. Differential includes worsening pathologic fracture, carotid artery compression, intracranial hemorrhage, facial bone fracture, among others. Workup we conducted with hematologic labs, EKG, noncontrasted CT scan of the head, face, cervical spine, CTA head and neck. Initial inventions include tetanus vaccine. Workup reviewed by me, hematologic labs are remarkable for hypokalemia which will be repleted IV, no CHANG or critical electrolyte abnormality, no significant leukocytosis. CT face informally visualized by me, large destructive left-sided mass. CT imaging shows no fracture of the cervical spine, mildly displaced fracture of the clavicle without overlying skin tenting on the right which will be put in a sling. CTA head and neck remarkable for occluded left vertebral artery and the case was discussed with radiology, they believe this to be chronic. There is also calcification with 80% stenosis of the right carotid bifurcation. Formal CT face read shows large soft tissue mass about the left dross puller space and parotid with bony destruction of the left mandible and left maxillary sinus, there is involvement of the medial and lateral pterygoid muscles it measures approximately 5.4 cm x 5.4 cm. The case discussed with Dr. Chadwick regarding management who agrees patient will benefit from tertiary care management at this time with a new diagnosis of a destructive left jaw mass limiting his ability to tolerate p.o. intake. Procedure: Procedure performed was laceration pair. Procedure form was aborted. Curvilinear laceration over the right brow 2.5 cm was cleaned with Hibiclens and normal saline. Wound was numbed with 1% lidocaine with epinephrine approximately 5 cc infected into the wound, anesthesia achieved. 4-0 Prolene was used in simple interrupted fashion, number of sutures placed with 4. Wound approximated well. Hemostasis achieved. Critical Care Critical Care Time Critical Care Time: Yes Attestation: On 04/13/24, the high probability of a clinically significant, sudden or life threatening deterioration of the following system(s) required my full and direct attention, intervention and personal management. The time I documented below is in addition to time spent performing reported procedures but includes the following listed in this critical care notation. Total Time Total Critical Care Time: 40
--- NOTE | 2024-04-13 10:41 | CT_ITS ---
Examination: CT angiogram of the brain. 04/13/2024 11:24 AM Indication: Injury or trauma; Fall; Blunt trauma; Head; Additional info: Fall, R side weak Technique: Imaging protocol: Computed tomographic angiography of the head with contrast. Exam focused on the arteries. 3D rendering (Not supervised by radiologist): MIP and/or 3D reconstructed images were created by the technologist. Radiation optimization: All CT scans at this facility use at least one of these dose optimization techniques: automated exposure control; mA and/or kV adjustment per patient size (includes targeted exams where dose is matched to clinical indication); or iterative reconstruction. Contrast material: [id number]; Contrast volume: 80 ml; Contrast route: INTRAVENOUS (IV) Findings: The axial source images were carefully reviewed and interpreted in conjunction with the projected images. Right petrous carotid, cavernous carotid, supraclinoid carotid: Calcifications within the petrous and cavernous carotid. No narrowing. Right M1 and M2 segments: Normal Right A1 and A2 segments: Unremarkable.. Left petrous and cavernous carotids and supraclinoid carotid: Calcification within the cavernous carotid. No narrowing Left M1 and M2 segments: Normal Left A1 and A2 segments: Normal Right and left posterior inferior cerebellar arteries: Patent Basilar artery: Diminutive in size Superior cerebellar arteries and the left and right P1 and P2 segments: Superior cerebellar arteries appear patent. origin of the right and left posterior cerebral arteries which appear unremarkable. Large soft tissue mass centered about the left it infrastructure consultant space and or parotid space. Impression: Calcification within the petrous and cavernous carotids. No narrowing. origin of the right and left posterior cerebral arteries. Soft tissue mass about the it infrastructure consultant space and parotid space on the left. Destruction/lytic process involving the mandible.
--- NOTE | 2024-04-13 10:41 | CT_ITS ---
Examination: CT angiogram of the neck. 04/13/2024 11:24 AM Indication: Injury or trauma; Fall; Blunt trauma; Head; Additional info: Fall, R sided weak Technique: Imaging protocol: Computed tomographic angiography of the neck with contrast. Exam focused on the cervical segments of the vasculature. 3D rendering (Not supervised by radiologist): MIP and/or 3D reconstructed images were created by the technologist. Radiation optimization: All CT scans at this facility use at least one of these dose optimization techniques: automated exposure control; mA and/or kV adjustment per patient size (includes targeted exams where dose is matched to clinical indication); or iterative reconstruction. Contrast material: [id number]; Contrast volume: 80 ml; Contrast route: INTRAVENOUS (IV). Degree of narrowing estimated utilizing NASCET criteria. Findings: The axial source images were carefully reviewed and interpreted in conjunction with the projected MIP images. Regarding the vascular structures: Transverse aorta: Mild vascular calcifications innominate artery: Poorly visualized secondary to artifact Right common carotid artery, bifurcation, and internal carotid artery: Dense calcifications involving the distal common carotid artery bifurcation and proximal internal carotid artery. Narrowing of the proximal internal carotid artery by approximately 70-80%. Left common carotid artery, bifurcation, and internal carotid arteries: Calcifications in the region of the carotid bulb and bifurcation. Prior operative changes. No appreciable narrowing. Vertebral arteries: Diminutive right vertebral artery not well visualized at its origin. Non opacification of the left vertebral artery which is occluded. basilar artery: Diminutive in size. Patent. Regarding the soft tissues: Large soft tissue mass likely centered about the parotid gland with areas of necrosis. Enhancement. Lytic process involving the body of the left mandible posteriorly as well as the lateral wall of the left maxillary sinus posteriorly in inferiorly. Impression: Prior carotid surgery on the left with a widely patent internal carotid artery. Extensive calcification at the carotid bifurcation on the right with narrowing likely in the range of 70-80%. Diminutive right vertebral artery not well visualized at its origin. Left vertebral artery is occluded. Large destructive masslike lesion about the box maker paperboard space and parotid space on the left.
--- NOTE | 2024-04-13 10:41 | CT_ITS ---
PROCEDURE INFORMATION: Exam: CT Maxillofacial Without Contrast Exam date and time: 04/13/2024 11:19 AM Age: 68 years old Clinical indication: Injury or trauma; Fall; Blunt trauma (contusions or hematomas); Forehead; Additional info: Fall, HX of mass L side TECHNIQUE: Imaging protocol: Computed tomography of the face without contrast. Radiation optimization: All CT scans at this facility use at least one of these dose optimization techniques: automated exposure control; mA and/or kV adjustment per patient size (includes targeted exams where dose is matched to clinical indication); or iterative reconstruction. COMPARISON: CT HEAD/BRAIN WO CON 04/13/2024 11:15 AM FINDINGS: Paranasal sinuses: Polyp versus retention cyst within the left maxillary sinus.. Orbital cavities: See Bones finding. Salivary glands: Large soft tissue mass centered about the left interior painter space and or parotid space with bony destruction of the body of the left mandible posteriorly. Bony lysis of the lateral wall of the left maxillary sinus posteriorly and inferiorly. This involves the medial and lateral pterygoid muscles and measures approximately 5.4 cm in the transverse dimension by approximately 5.4 cm in the anterior-posterior dimension and craniocaudal dimension. Neoplastic process of concern. Bones: Mandible, pterygoid plates, maxilla, skull base, middle ears, paranasal sinuses, zygomatic arches, and orbital echevarria normal. Retrobulbar fat and orbits are normal. Soft tissues: Unremarkable. IMPRESSION: Large soft tissue mass centered about the left interior painter space and or parotid space with bony destruction of the body of the left mandible posteriorly. Bony lysis of the lateral wall of the left maxillary sinus posteriorly and inferiorly. This involves the medial and lateral pterygoid muscles and measures approximately 5.4 cm in the transverse dimension by approximately 5.4 cm in the anterior-posterior dimension and craniocaudal dimension. Neoplastic process of concern. Infectious process also within the differential diagnosis. Relation to prior trauma felt unlikely. The above was read and discussed at approximately 12:48 PM EDT on04/13/2024 with the attending physician , BATSHEVA House.
--- NOTE | 2024-04-13 10:41 | XR_ITS ---
PROCEDURE INFORMATION: Exam: XR Right Shoulder Exam date and time: 04/13/2024 11:24 AM Age: 68 years old Clinical indication: Pain and injury or trauma; Fall; Blunt trauma (contusions or hematomas); Shoulder; Right; Additional info: Fall, RT shoulder pain TECHNIQUE: Imaging protocol: Radiologic exam of the right shoulder. Views: 2 or more views. COMPARISON: CT ANGIO NECK 04/13/2024 11:24 AM FINDINGS: Tubes, catheters and devices: Chest port via the right subclavian approach with the tip projecting over the superior vena cava. Bones/joints: mildly displaced fracture of the distal aspect of the clavicle adjacent to the acromioclavicular joint. Age indeterminate. Mildly displaced. Soft tissues: Radiopaque densities in the axillary region IMPRESSION: Mildly displaced fracture of the distal aspect of the clavicle adjacent to the acromioclavicular joint. Age indeterminate. Mildly displaced.
--- NOTE | 2024-04-13 10:41 | CT_ITS ---
PROCEDURE INFORMATION: Exam: CT Head Without Contrast Exam date and time: 04/13/2024 11:15 AM Age: 68 years old Clinical indication: Injury or trauma; Fall; Blunt trauma (contusions or hematomas); Additional info: Fall, R forehead trauma TECHNIQUE: Imaging protocol: Computed tomography of the head without contrast. Radiation optimization: All CT scans at this facility use at least one of these dose optimization techniques: automated exposure control; mA and/or kV adjustment per patient size (includes targeted exams where dose is matched to clinical indication); or iterative reconstruction. COMPARISON: CT HEAD/BRAIN WO CON 04/08/2024 4:25 PM FINDINGS: Brain: Hypodensity is seen in the periventricular cerebral white matter. This change is nonspecific but is most likely secondary to chronic ischemia within microvascular distributions. No intra or extra-axial masses, lesions or collections. Brown white matter distinction is maintained throughout the brain. No radiographic evidence of intracranial hemorrhage. Cerebral ventricles: Ventricles are enlarged on the basis of mild diffuse cerebral volume loss. Paranasal sinuses: Polyp versus retention cyst within the left maxillary sinus. Mastoid air cells: Visualized mastoid air cells are well aerated. Parotid and submandibular glands: Soft tissue mass in the left justowriter operator space and parotid space with destruction of the left mandible. This measures approximately 5 cm in the transverse dimension and anterior posterior dimension. This involves the lateral and medial pterygoid muscles. Probable bony lysis of the lateral maxillary wall inferiorly and laterally. Previously noted. Correlate regarding known history. Bones: See Parotid and submandibular glands finding. Soft tissues: Mild periorbital soft tissue swelling on the right IMPRESSION: 1. No radiographic evidence of acute intracranial pathology. 2. Soft tissue mass in the left justowriter operator space and parotid space with destruction of the left mandible. This measures approximately 5 cm in the transverse dimension and anterior posterior dimension. This involves the lateral and medial pterygoid muscles. Probable bony lysis of the lateral maxillary wall inferiorly and laterally. Previously noted. Correlate regarding known history.
--- NOTE | 2024-04-13 10:41 | XR_ITS ---
PROCEDURE INFORMATION: Exam: XR Right Knee Exam date and time: 04/13/2024 11:24 AM Age: 68 years old Clinical indication: Pain and injury or trauma; Fall; Blunt trauma; Knee; Right; Additional info: Fall, RT knee pain TECHNIQUE: Imaging protocol: Radiologic exam of the right knee. Views: 1 or 2 views. COMPARISON: No relevant prior studies available. FINDINGS: Bones/joints: Osseous structures of the knee normal. No fracture. No joint effusion. Soft tissues unremarkable. Soft tissues: See Bones/joints finding. IMPRESSION: Normal knee.
--- NOTE | 2024-04-13 10:43 | CT_ITS ---
PROCEDURE INFORMATION: Exam: CT Cervical Spine Without Contrast Exam date and time: 04/13/2024 11:17 AM Age: 68 years old Clinical indication: Injury or trauma; Fall; Blunt trauma TECHNIQUE: Imaging protocol: Computed tomography of the cervical spine without contrast. Radiation optimization: All CT scans at this facility use at least one of these dose optimization techniques: automated exposure control; mA and/or kV adjustment per patient size (includes targeted exams where dose is matched to clinical indication); or iterative reconstruction. COMPARISON: CT CERVICAL SPINE WO CON 04/08/2024 4:25 PM FINDINGS: Tubes, catheters and devices: Central venous catheter Bones: Alignment normal. posterior vertebral line and the spinal laminar line normal. odontoid process normal. no fracture. degenerative disc disease most pronounced C4-C5, C5-C6 and C6-C7 reflected as disk space narrowing and anterior osteophyte formation. Schmorl's node superior endplate C7 Salivary glands: Large soft tissue mass centered about the left polisher implant space and left parotid gland. Destructive. Lungs: Mild emphysema predominantly centrilobular. Mild apical fibrosis. Vasculature: Dense carotid calcifications Soft tissues: Unremarkable. IMPRESSION: 1. No fracture. 2. Degenerative disc disease most pronounced C4-C5, C5-C6 and C6-C7 reflected as disk space narrowing and anterior osteophyte formation. 3. Large soft tissue mass centered about the left polisher implant space and left parotid gland. Destructive.
[2024-04-13 10:51] LABS: Basophils # 0.1 K/mm3 (0-0.2); Basophils % 0.5 % (0.1-2.0); Eosinophils # 0.1 K/mm3 (0.0-0.4); Eosinophils % 1.4 % (0.1-12.0); Hematocrit 39.7 % (42.0-52.0); Hemoglobin 13.1 g/dL (14.1-18.0); Lymphocytes # 0.9 K/mm3 (0.7-4.5); Lymphocytes % 9.1 % (10-50); Mean Corpuscular Hemoglobin 28.5 pg (27.0-31.2); Mean Corpuscular Volume 86.4 fl (80-94); Mean Platelet Volume 7.6 fl (7.4-10.4); Monocytes # 0.5 K/mm3 (0.1-1.0); Monocytes % 5.2 % (1.7-9.3); Neutrophils # 8.2 K/mm3 (1.8-7.8); Neutrophils % 83.9 % (37.0-80.0); Platelet Count 327 K/mm3 (142-424); Red Cell Distribution Width 13.7 % (11.5-17.5); White Blood Count 9.8 K/mm3 (4.8-10.8)
[2024-04-13] MEDS: TET/DIPHTH/PERT-ADULT 0.5ML SYRINGE 0.5 ML IM (10:54)
[2024-04-13 10:56] LABS: Chloride 96 mmol/L (98-107)
[2024-04-13 10:57] LABS: Albumin Level 3.8 g/dl (3.5-5.0); Sodium 135 mmol/L (136-145)
[2024-04-13] MEDS: LIDOCAINE 1% W/EPI 1:100,000 20ML VIAL 5 ML IJ (10:58)
[2024-04-13 10:59] LABS: Blood Urea Nitrogen 5 mg/dl (9-20); Creatinine Clearance Estimated 58 mL/min (50-200); Estimated Glomerular Filt Rate 112 ml/min (>60); GFR (African American) 136 ML/MIN (>60)
[2024-04-13 11:00] LABS: Alanine Aminotransferase 12 U/L (12-78); Albumin/Globulin Ratio 1.2 (1.1-1.8); Alkaline Phosphatase 103 U/L (38-126); Aspartate Amino Transferase 18 U/L (17-59); Bilirubin,Total 0.5 mg/dl (0.2-1.3); Calcium 10.4 mg/dl (8.4-10.2); Carbon Dioxide 38 mmol/L (22.0-30.0); Globulin 3.3 g/dL (1.3-3.2); Glucose 173 mg/dl (74-100); Magnesium 1.7 mg/dl (1.6-2.3); Total Protein,Serum 7.1 g/dl (6.3-8.2)
[2024-04-13] MEDS: 0.9 % SODIUM CHLORIDE 50 ML VIAL IV (11:22)
[2024-04-13] MEDS: IOPAMIDOL-370 (76%);100ML BOTTLE 80 ML IV (11:22)
[2024-04-13] MEDS: SODIUM CHLORIDE 0.9% 10ML SYR (RAD ONLY) 10 ML IV (11:22)
--- NOTE | 2024-04-13 11:38 | PC.NURSE ---
Pt back in room from Rad
--- NOTE | 2024-04-13 11:47 | ECG_ITS ---
APPROVED REPORT Exam: Resting ECG HR:55 bpm ECG Measurements Heart Rate 55 AXES SC 224 P 94 QRSd 154 QRS 82 QT 507 T 78 QTc 496 Conclusion SINUS BRADYCARDIA WITH FIRST DEGREE AV BLOCK WITH OCCASIONAL SUPRAVENTRICULAR PREMATURE COMPLEXES RIGHT BUNDLE BRANCH BLOCK [120+ ms QRS DURATION, UPRIGHT V1, 40+ ms S IN I/aVL/V4/V5/V6] ABNORMAL ECG Electronically signed by : BATSHEVA HAMEED, 04/13/2024 15:06:02
[2024-04-13] MEDS: LACTATED RINGERS 1000ML 1,000 ML 999 ML IV (12:10)
[2024-04-13] MEDS: KCl 20mEq/100ml 100 ML 50 MEQ IV ×2 (12:10→14:07)
--- NOTE | 2024-04-13 12:58 | PC.NURSE ---
Called [facility] for a transfer per Dr. Morris, [facility] said they would give us a call back.
== END 2024-04-13 15:18 | disposition short-term general hospital (02) ==
PROVIDERS: Emergency Provider Emergency Medicine
DX: I65.02 Occlusion and stenosis of left vertebral artery (principal); E87.6 Hypokalemia; M27.8 Other specified diseases of jaws; S09.93XA Unspecified injury of face, initial encounter; S42.009A Fracture of unspecified part of unspecified clavicle, initial encounter for closed fracture; R42 Dizziness and giddiness; R51.9 Headache, unspecified; M54.2 Cervicalgia; M25.511 Pain in right shoulder; M25.561 Pain in right knee; Z23 Encounter for immunization
CPT/HCPCS: 70450; 70486; 70496; 70498; 72125; 73030; 73560; 80053; 83735; 85025; 90715; 93005; 96360; 99291; J7120; Q9967

== ENCOUNTER 2024-05-20 10:48 | Emergency (ER) | payer MEDICARE, OTHER, SELFPAY ==
[2024-05-20 10:46] VITALS: BP 154/74; PULSE 43; RESP 20; TEMP 36.6; O2SAT 100; BMI 17.2
[2024-05-20 10:47] VITALS: BP 154/74; PULSE 42; RESP 16; O2SAT 99
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
--- NOTE | 2024-05-20 12:07 | PC.NURSE ---
Dr. Schwartz is s/w [facility]
--- NOTE | 2024-05-20 12:54 | PC.NURSE ---
Sulema notified of patient's discharge. Education given on need to follow up and follow up numbers.
[2024-05-20 12:58] VITALS: BP 154/74; PULSE 42; RESP 16; TEMP 36.6; O2SAT 99
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
== END 2024-05-20 13:51 | disposition home or self-care (01) ==
PROVIDERS: Emergency Provider Student in an Organized Health Care Education/Training Program; PCP Nurse Practitioner Acute Care
DX: G50.1 Atypical facial pain (principal); T20.10XA Burn of first degree of head, face, and neck, unspecified site, initial encounter; X08.8XXA Exposure to other specified smoke, fire and flames, initial encounter; Y93.89 Activity, other specified; Y92.89 Other specified places as the place of occurrence of the external cause
CPT/HCPCS: 93005; 99284

== ENCOUNTER 2024-06-11 13:19 | Emergency (ER) | payer MEDICARE, OTHER, SELFPAY ==
[2024-06-11 13:20] VITALS: BP 129/78; PULSE 50; RESP 16; TEMP 36.9; O2SAT 95; BMI 18.5
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
[2024-06-11 13:29] VITALS: BP 114/62; PULSE 49; O2SAT 94
--- NOTE | 2024-06-11 13:38 | PC.NURSE ---
call made to [facility] ([place], [place]) for transportation back to facility. staff state that they will have someone come to pick pt up.
[2024-06-11 13:45] VITALS: PULSE 63; O2SAT 96
[2024-06-11 13:58] VITALS: BP 114/62; PULSE 56; RESP 18; TEMP 36.5; O2SAT 97
== END 2024-06-11 13:59 | disposition home or self-care (01) ==
PROVIDERS: Emergency Provider Student in an Organized Health Care Education/Training Program
DX: R55 Syncope and collapse (principal); W01.0XXA Fall on same level from slipping, tripping and stumbling without subsequent striking against object, initial encounter; Y93.89 Activity, other specified; Y92.480 Sidewalk as the place of occurrence of the external cause
CPT/HCPCS: 99283

== ENCOUNTER 2024-06-18 17:37 | Emergency (ER) | payer MEDICARE, OTHER, SELFPAY ==
[2024-06-18 17:37] VITALS: BP 111/56; PULSE 50; RESP 17; TEMP 36.7; O2SAT 98; BMI 18.6
--- NOTE | 2024-06-18 17:46 | XR_ITS ---
PROCEDURE INFORMATION: Exam: XR Left Knee Exam date and time: 06/18/2024 5:52 PM Age: 68 years old Clinical indication: Injury or trauma; Fall; Other: Pain; Additional info: Fall, distal/medial femur pain TECHNIQUE: Imaging protocol: Radiologic exam of the left knee. Views: 3 views. Total images: 4 COMPARISON: No relevant prior studies available. FINDINGS: Bones/joints: No acute fracture, joint dislocation, or joint effusion. Age-appropriate joint spaces. Mild flattening to the articular contour of the lateral femoral condyle implying sequela of osteonecrosis. This can be followed with nonemergent MRI. No concerning bone lesions. Soft tissues: Unremarkable soft tissues. Vasculature: Mild vascular calcifications. IMPRESSION: 1. No acute osseous abnormality. 2. Mild flattening to the articular contour of the lateral femoral condyle implying sequela of osteonecrosis. This can be followed with nonemergent MRI.
[2024-06-18] MEDS: ACETAMINOPHEN 500MG TAB 1000 MG PO (17:56)
[2024-06-18] MEDS: IBUPROFEN 600 MG TABLET PO (17:56)
[2024-06-18 18:01] VITALS: BP 95/34; PULSE 55; O2SAT 96
--- NOTE | 2024-06-18 18:02 | ED_ITS ---
Discharge Plan Disposition Patient Disposition: Home, Self-Care Chief Complaint: Fall Prescriptions Prescriptions: No Action trazodone 50 mg tablet 50 mg PO HS thiamine HCl (vitamin B1) 100 mg tablet 100 mg PO DAILY meclizine 12.5 mg tablet 12.5 mg PO TID PRN levothyroxine 75 mcg tablet 75 mcg PO DAILY citalopram 20 mg tablet 20 mg PO DAILY magnesium oxide 400 mg (241.3 mg magnesium) tablet 400 mg PO BID ferrous sulfate [FeroSul] 325 mg (65 mg iron) tablet 325 mg PO DAILY acetaminophen 500 mg capsule 500 mg PO Q6H PRN aspirin [Adult Low Dose Aspirin] 81 mg tablet,delayed release (DR/EC) 81 mg PO DAILY Qty: 30 2RF aripiprazole 15 mg tablet 15 mg PO DAILY ibuprofen 600 mg tablet 600 mg PO Q6H PRN melatonin 5 mg tablet 5 mg PO HS PRN metoprolol succinate [Toprol XL] 25 mg tablet extended release 24 hr 25 mg PO DAILY Qty: 30 5RF bacitracin 500 unit/gram packet 1 applic topical Q6H 14 Days Qty: 144 0RF Rx Instructions: apply to the left facial tomlin moxifloxacin 0.5 % drops 1 drp Eye-Left QID 7 Days Qty: 3 0RF prednisolone acetate 1 % drops,suspension 1 drp Eye-Left QID 7 Days Qty: 5 0RF Artificial Tears (cmc) 1 % drops 1 drp ophthalmic (eye) Q2H 7 Days Qty: 15 0RF sulfamethoxazole-trimethoprim [Bactrim] 400-80 mg tablet 1 tab PO BID 7 Days Qty: 14 0RF Referrals Follow up/Referrals: Jeb Jeff APRN [Primary Care Provider] - See instructions Activity Restrictions/Add. Instructions Additional Instructions/Restrictions: Follow-up with your family doctor regarding this visit to the emergency department. Take Tylenol 1000 mg every 6 hours (4 times daily) and ibuprofen 400 mg every 6 hours (4 times daily) as needed with food and water to prevent GI upset and kidney damage. Clinical Impressions Clinical Impression: Left knee sprain Print Language Print Language: Beninese Discharge ED Provider: Eugene Kaur General Adult [facility] General Chief complaint: Fall Stated complaint: EYE SWELLING Time Seen by Provider: 06/18/24 17:37 Mode of Arrival: EMS Source of Information: Patient, EMS and Medical Record Limitations: No Limitations Description of Symptoms (Recalled from ER Triage Doc. by RN): Pt c/o left knee pain after a fall to his knees approx 2 hr ago. Pt denies any other injury. He has a known hx of eye infection, burn, cellulitis that has been treating. [employer] employee was concerned d/t pt was not walking well. History of Present Illness HPI narrative: Please note that above description of symptoms, in this electronic medical record under categorization of recalled from ER triage doctor by RN are reflective of an initial nursing assessment, however, is not reflective of my full history and physical exam that was personally taken and clarified. Consequentially, this preceding description of symptoms, which may include the patient's categorized chief complaint in the EMR, do not reflect my personal clinical impression, and the ultimate description of history of present illness and patient stated complaints should be deferred to this section of the note. Unless stated otherwise or congruent with this section of the note, additional signs, symptoms, or incongruence should be interpreted as inaccurate with my clinical impression. Related Data Home Medications ?Medication ?Instructions ?Recorded ?Confirmed acetaminophen 500 mg capsule 500 mg PO Q6H PRN 03/12/22 03/12/22 citalopram 20 mg tablet 20 mg PO DAILY 03/12/22 03/12/22 ferrous sulfate 325 mg (65 mg 325 mg PO DAILY 03/12/22 03/12/22 iron) tablet (FeroSul) levothyroxine 75 mcg tablet 75 mcg PO DAILY 03/12/22 03/12/22 magnesium oxide 400 mg (241.3 mg 400 mg PO BID 03/12/22 03/12/22 magnesium) tablet meclizine 12.5 mg tablet 12.5 mg PO TID PRN 03/12/22 03/12/22 thiamine HCl (vitamin B1) 100 mg 100 mg PO DAILY 03/12/22 03/12/22 tablet trazodone 50 mg tablet 50 mg PO HS 03/12/22 03/12/22 aripiprazole 15 mg tablet 15 mg PO DAILY 09/30/23 09/30/23 ibuprofen 600 mg tablet 600 mg PO Q6H PRN 09/30/23 09/30/23 melatonin 5 mg tablet 5 mg PO HS PRN 09/30/23 09/30/23 Previous Rx's ?Medication ?Instructions ?Recorded aspirin 81 mg tablet,delayed 81 mg PO DAILY #30 tabs 03/12/22 release (Adult Low Dose Aspirin) metoprolol succinate 25 mg 25 mg PO DAILY #30 tabs 03/15/24 tablet,extended release 24 hr (Toprol XL) sulfamethoxazole 400 1 tab PO BID 7 days #14 tabs 04/08/24 mg-trimethoprim 80 mg tablet (Bactrim) bacitracin 500 unit/gram topical 1 applic topical Q6H 14 days #144 05/20/24 packet ea carboxymethylcellulose sodium 1 % 1 drp ophthalmic (eye) Q2H 7 days 05/20/24 eye drops (Artificial Tears #15 mL (carboxymethylcellulose)) moxifloxacin 0.5 % eye drops 1 drp Eye-Left QID 7 days #3 mL 05/20/24 prednisolone acetate 1 % eye 1 drp Eye-Left QID 7 days #5 mL 05/20/24 drops,suspension Allergies Allergy/AdvReac Type Severity Reaction Status Date / Time No Known Allergies Allergy Verified 09/30/23 11:03 [facility] Disclaimer: The information contained in this section may have been updated after the patient was seen, as this information can be updated by other users. Medical History Afib Dvbkm-Oupnmhwcu-Tzien (WPW) syndrome CAD (coronary artery disease), autologous vein bypass graft Palpitations Social History Smoking Status: Current every day smoker alcohol intake: never current occupational status: disabled Travel in the last 8 weeks: None Have you lived/traveled outside [place] in past 30 days?: No Contact w/someone who lives/traveled outside [place] past 30 days?: No Exposure to someone with infectious disease in past 14 days?: No Do you have a fever (greater than 100.4 F or 38 C)?: No Have you tested positive for COVID-19: No Exposed to someone with COVID-19 in past 14 days?: No Do you have a sore throat?: No Do you have a cough?: No Do you have any weakness?: No Do you have any diarrhea?: No Are you experiencing any unusual bleeding?: No Do you have any muscle aches/pain?: No Do you have any abdominal pain?: No Are you experiencing loss of taste or smell?: No Other Medical History Have you received the Pneumonia Vaccine: Yes ROS Obtained: Yes All systems reviewed & no additional complaints except as documented Physical Exam General General appearance: alert and in no apparent distress Head Head exam: atraumatic and normocephalic Eye Eye exam: Present normal appearance, PERRL and EOMI Neck Neck exam: Present normal inspection, full ROM and trachea midline Respiratory Respiratory exam: Absent respiratory distress, wheezes, stridor, accessory muscle use or prolonged expiratory phase Cardiovascular Cardiovascular exam: Present other (Pulses equal symmetric in upper and lower extremities) Abdominal Exam Abdominal exam: Present soft; Absent distention, tenderness or pulsatile mass Extremities Exam Extremities exam: Absent edema Neurological Exam Neurological exam: Present alert, oriented X3 and CN II-XII intact; Absent motor sensory deficit Skin Skin exam: Present warm and dry; Absent diaphoresis or erythema Medical Decision Making Medical Records Medical records reviewed: Yes I reviewed the patient's medical records. Screening: Per USPSTF and CDC recommendations, given the prevalence of disease in our region, it is our hospital?s policy to screen for HIV and viral Hepatitis for all patients aged 18 and over and those with ongoing risk factors. Dave Inquiry Pt receiving controlled substance: No Dave was queried for this patient: No Vital Signs: 06/18/24 17:37 06/18/24 18:01 Temperature 98.1 F Temperature Source Oral Pulse Rate 55 L Pulse Rate [Right] 50 L Respiratory Rate 17 Blood Pressure 95/34 L Blood Pressure [Right Arm] 111/56 L Blood Pressure Mean [Right Arm] 74 Blood Pressure Source [Right Arm] Automatic Cuff 02 Sat by Pulse Oximetry 98 96 Oxygen Delivery Method Room Air Room Air Orders (Tests/Meds): ED MEDICATIONS Discontinued Medications Generic Name Dose Route Start Last Admin Trade Name Freq PRN Reason Stop Dose Admin Acetaminophen 1,000 mg 06/18/24 17:46 06/18/24 17:56 Acetaminophen 500mg Tab PO 06/18/24 17:47 1,000 mg ONCE ONE Administration Ibuprofen 600 mg 06/18/24 17:46 06/18/24 17:56 Ibuprofen 600 Mg Tablet PO 06/18/24 17:47 600 mg ONCE ONE Administration ORDERS Category Date Time Status Knee XR left 3 views [XR knee LT 3V] Stat Exams 06/18/24 17:46 Taken Medical Decision Narrative: 68-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 Patient states that he fell a couple days prior to this, Also fell a couple hours prior to this. States that he was walking with his brother, fell to his right side, but twisted his left knee. Did not lose consciousness or hit his head, not having any pain other than in his left knee. Came in for further evaluation. Has not taken any meds for the pain. Its mild, does not radiate. Able to ambulate without issue, just mild pain. History was obtained via conversation with patient and EMS. On arrival, patient hemodynamically stable, alert, oriented x4, appropriate, GCS 15, moving all extremities spontaneously, pupils equal and reactive to light. Full physical exam performed and significant for chronically ill, disheveled appearing male no acute distress. Left knee is tender medial/distal femur, no outward signs of abnormality. It is neurovascular intact, range of motion is intact, structurally intact and outwardly completely normal as compared to the right. Differential includes sprain, strain, fracture, among others. X-rays obtained, patient given Tylenol and ibuprofen. On independent interpretation, knee x-rays negative for any acute bony pathology. On reevaluat ion, patient still resting at baseline. I feel this is likely senior account representative of a sprain versus benign MSK bruise, among other etiology. Completely intact, benign exam. Because patient at baseline without signs or symptoms of clinical decompensation, deemed appropriate for discharge. Results were relayed to patient who voiced understanding and were agreeable to outpatient management and follow up. I discussed my clinical impression with patient and answered all questions. At this time, the evidence for any other entities in the differential is insufficient to warrant any further testing or ED observation. This was explained as well. Advisory was given that persistent or worsening symptoms require further evaluation. I confirmed the understanding of this discussion. Casing Mixer disclaimer Much of this encounter note is an electronic process improvement consultant spoken language to printed text. Electronic process improvement consultant of the spoken language may permit errors. Although I have reviewed the note, some errors may still exist. Critical Care Critical Care Time Critical Care Time: No
--- NOTE | 2024-06-18 18:51 | PC.NURSE ---
Called fermín that patient is ready to be picked up.
[2024-06-18 19:07] VITALS: BP 96/54; PULSE 52; RESP 16; TEMP 36.8; O2SAT 98
== END 2024-06-18 19:16 | disposition home or self-care (01) ==
PROVIDERS: Emergency Provider Emergency Medicine; PCP Nurse Practitioner Acute Care
DX: S83.92XA Sprain of unspecified site of left knee, initial encounter (principal); M25.562 Pain in left knee; W19.XXXA Unspecified fall, initial encounter; Y93.9 Activity, unspecified
CPT/HCPCS: 73562; 99283

== ENCOUNTER 2024-06-22 14:52 | Emergency (ER) | payer MEDICARE, OTHER, SELFPAY ==
[2024-06-22 14:52] VITALS: BP 135/57; BP 145/58; PULSE 63; PULSE 88; RESP 18; TEMP 36.6; TEMP 36.9; O2SAT 96; O2SAT 97; BMI 21.1; BMI 21.6
--- NOTE | 2024-06-22 14:54 | ED_ITS ---
Discharge Plan Prescriptions Prescriptions: No Action trazodone 50 mg tablet 50 mg PO HS thiamine HCl (vitamin B1) 100 mg tablet 100 mg PO DAILY meclizine 12.5 mg tablet 12.5 mg PO TID PRN levothyroxine 75 mcg tablet 75 mcg PO DAILY citalopram 20 mg tablet 20 mg PO DAILY magnesium oxide 400 mg (241.3 mg magnesium) tablet 400 mg PO BID ferrous sulfate [FeroSul] 325 mg (65 mg iron) tablet 325 mg PO DAILY acetaminophen 500 mg capsule 500 mg PO Q6H PRN aspirin [Adult Low Dose Aspirin] 81 mg tablet,delayed release (DR/EC) 81 mg PO DAILY Qty: 30 2RF aripiprazole 15 mg tablet 15 mg PO DAILY ibuprofen 600 mg tablet 600 mg PO Q6H PRN melatonin 5 mg tablet 5 mg PO HS PRN metoprolol succinate [Toprol XL] 25 mg tablet extended release 24 hr 25 mg PO DAILY Qty: 30 5RF bacitracin 500 unit/gram packet 1 applic topical Q6H 14 Days Qty: 144 0RF Rx Instructions: apply to the left facial tomlin moxifloxacin 0.5 % drops 1 drp Eye-Left QID 7 Days Qty: 3 0RF prednisolone acetate 1 % drops,suspension 1 drp Eye-Left QID 7 Days Qty: 5 0RF Artificial Tears (cmc) 1 % drops 1 drp ophthalmic (eye) Q2H 7 Days Qty: 15 0RF sulfamethoxazole-trimethoprim [Bactrim] 400-80 mg tablet 1 tab PO BID 7 Days Qty: 14 0RF Print Language Print Language: French Discharge ED Provider: Kelley Gray General Adult HPI General Stated complaint: SKIN INFECTION Time Seen by Provider: 06/22/24 14:54 Related Data Home Medications ?Medication ?Instructions ?Recorded ?Confirmed acetaminophen 500 mg capsule 500 mg PO Q6H PRN 03/12/22 03/12/22 citalopram 20 mg tablet 20 mg PO DAILY 03/12/22 03/12/22 ferrous sulfate 325 mg (65 mg 325 mg PO DAILY 03/12/22 03/12/22 iron) tablet (FeroSul) levothyroxine 75 mcg tablet 75 mcg PO DAILY 03/12/22 03/12/22 magnesium oxide 400 mg (241.3 mg 400 mg PO BID 03/12/22 03/12/22 magnesium) tablet meclizine 12.5 mg tablet 12.5 mg PO TID PRN 03/12/22 03/12/22 thiamine HCl (vitamin B1) 100 mg 100 mg PO DAILY 03/12/22 03/12/22 tablet trazodone 50 mg tablet 50 mg PO HS 03/12/22 03/12/22 aripiprazole 15 mg tablet 15 mg PO DAILY 09/30/23 09/30/23 ibuprofen 600 mg tablet 600 mg PO Q6H PRN 09/30/23 09/30/23 melatonin 5 mg tablet 5 mg PO HS PRN 09/30/23 09/30/23 Previous Rx's ?Medication ?Instructions ?Recorded aspirin 81 mg tablet,delayed 81 mg PO DAILY #30 tabs 03/12/22 release (Adult Low Dose Aspirin) metoprolol succinate 25 mg 25 mg PO DAILY #30 tabs 03/15/24 tablet,extended release 24 hr (Toprol XL) sulfamethoxazole 400 1 tab PO BID 7 days #14 tabs 04/08/24 mg-trimethoprim 80 mg tablet (Bactrim) bacitracin 500 unit/gram topical 1 applic topical Q6H 14 days #144 05/20/24 packet ea carboxymethylcellulose sodium 1 % 1 drp ophthalmic (eye) Q2H 7 days 05/20/24 eye drops (Artificial Tears #15 mL (carboxymethylcellulose)) moxifloxacin 0.5 % eye drops 1 drp Eye-Left QID 7 days #3 mL 05/20/24 prednisolone acetate 1 % eye 1 drp Eye-Left QID 7 days #5 mL 05/20/24 drops,suspension Allergies Allergy/AdvReac Type Severity Reaction Status Date / Time No Known Allergies Allergy Verified 09/30/23 11:03 [facility] Disclaimer: The information contained in this section may have been updated after the patient was seen, as this information can be updated by other users. Medical History Afib Szjsv-Dqrlaqshp-Ftpxp (WPW) syndrome CAD (coronary artery disease), autologous vein bypass graft Palpitations Social History Smoking Status: Current every day smoker alcohol intake: never current occupational status: disabled Travel in the last 8 weeks: None Other Medical History Have you received the Pneumonia Vaccine: Yes ROS Obtained: Yes Systems reviewed as appropriate & no additional complaints except as documented Physical Exam General General appearance: alert and in no apparent distress Head Head exam: atraumatic and normal inspection Eye Eye exam: Present normal appearance, PERRL and EOMI ENT ENT exam: Present normal exam, normal oropharynx and mucous membranes moist Neck Neck exam: Present normal inspection, full ROM and trachea midline; Absent lymphadenopathy Chest Chest inspection: Present normal inspection and symmetric chest wall rise Respiratory Respiratory exam: Present normal lung sounds bilaterally; Absent accessory muscle use Cardiovascular Cardiovascular exam: Present regular rate, normal rhythm, normal heart sounds, +S1 and +S2 Abdominal Exam Abdominal exam: Present soft and normal bowel sounds; Absent tenderness, guarding or rebound Extremities Exam Extremities exam: Present normal inspection and full ROM Neurological Exam Neurological exam: Present alert, oriented X3 and CN II-XII intact Psychiatric Psychiatric exam: Present normal affect and normal mood Skin Skin exam: Present warm, dry and normal color Lymphatic Lymphatic Findings: no adenopathy Medical Decision Making Medical Records Screening: Per USPSTF and CDC recommendations, given the prevalence of disease in our region, it is our hospital?s policy to screen for HIV and viral Hepatitis for all patients aged 18 and over and those with ongoing risk factors. Medical Decision Narrative: In summary patient is a [age, sex] who presents to the emergency department for evaluation of [complaint]. Patient is [hemodynamically stable/unstable] upon arrival, [febrile/afebrile]. [Unremarkable physical exam, nonfocal exam versus focal remarkable exam]. Differential diagnosis includes [DDx]. Initial workup will be conducted with [hematologic labs, imaging, respiratory swab, describe workup]. Initial interventions include [crystalloid bolus, medications, p.o. challenge, etc.] initial workup reviewed by me [hematologic labs are remarkable for... Imaging remarkable for... Urinalysis remarkable for]. Upon repeat evaluation [patient had acceptable resolution of symptoms, had persistent pain for which additional interventions were conducted (describe interventions), tolerated p.o., was ambulatory, etc.]. Given this [patient is appropriate for discharge at this time and will be discharged with a prescription for... The case was discussed with hospital medicine regarding management and they will admit the patient their service for continued evaluation at this time... Etc.] Places where you can increase complexity: I informally interpreted the patient's chest x-ray or CT read and is remarkable for... Documenting what the panel monitor shows with rate and rhythm Consideration of test but deferring. Ex: I considered chest x-ray on this patient however given that they have no oxygen requirement and are clear to auscultation all lung lester will be deferred. Social determinants of health: Given that patient is undomiciled increases complexity. Given that patient has polysubstance abuse compounds all aspects of care
--- NOTE | 2024-06-22 15:03 | ED_ITS ---
<Statement entered by Kelley Gray MD - 06/22/24 15:30> I was consulted by the HESHAM, and we discussed the complexity of the problems being addressed. I approved the treatment and management plan for this patient's care in the emergency department, thus performing a substantive portion of the medical decision making. Kelley Gray MD, FRANCINE, FACEP Discharge Plan Disposition Patient Disposition: Home, Self-Care Condition: Good Prescriptions Prescriptions: No Action trazodone 50 mg tablet 50 mg PO HS thiamine HCl (vitamin B1) 100 mg tablet 100 mg PO DAILY meclizine 12.5 mg tablet 12.5 mg PO TID PRN levothyroxine 75 mcg tablet 75 mcg PO DAILY citalopram 20 mg tablet 20 mg PO DAILY magnesium oxide 400 mg (241.3 mg magnesium) tablet 400 mg PO BID ferrous sulfate [FeroSul] 325 mg (65 mg iron) tablet 325 mg PO DAILY acetaminophen 500 mg capsule 500 mg PO Q6H PRN aspirin [Adult Low Dose Aspirin] 81 mg tablet,delayed release (DR/EC) 81 mg PO DAILY Qty: 30 2RF aripiprazole 15 mg tablet 15 mg PO DAILY ibuprofen 600 mg tablet 600 mg PO Q6H PRN melatonin 5 mg tablet 5 mg PO HS PRN metoprolol succinate [Toprol XL] 25 mg tablet extended release 24 hr 25 mg PO DAILY Qty: 30 5RF bacitracin 500 unit/gram packet 1 applic topical Q6H 14 Days Qty: 144 0RF Rx Instructions: apply to the left facial tomlin moxifloxacin 0.5 % drops 1 drp Eye-Left QID 7 Days Qty: 3 0RF prednisolone acetate 1 % drops,suspension 1 drp Eye-Left QID 7 Days Qty: 5 0RF Artificial Tears (cmc) 1 % drops 1 drp ophthalmic (eye) Q2H 7 Days Qty: 15 0RF sulfamethoxazole-trimethoprim [Bactrim] 400-80 mg tablet 1 tab PO BID 7 Days Qty: 14 0RF Activity Restrictions/Add. Instructions Additional Instructions/Restrictions: Follow-up with your PCP for no improvement or worsening signs or symptoms. Your PEG site will likely look like this from time to time. It is best to put a dry nonocclusive dressing over the site to prevent irritation. Clinical Impressions Clinical Impression: Encounter for medical assessment Instructions Patient Instructions: DI for Skin Abscess Print Language Print Language: Tamazight Discharge ED Provider: Eugene Kaur General Adult HPI <MILLER Hester - Last Filed: 06/22/24 16:20> General Chief complaint: Skin/Abscess/Foreign Body Stated complaint: SKIN INFECTION Time Seen by Provider: 06/22/24 14:54 History of Present Illness HPI narrative: Patient presents for evaluation of initially reported as skin problem. Patient has a past medical history of facial cancer and previously had a PEG placed however patient himself does not recall that. He does not know how long it has been out. He was concerned because it was draining and thought it was a hole in his skin. However after conferring with his brother who is his next of kin patient had the tube removed approximately 2 years ago. Patient does not remember this. He denies any fever chills hemoptysis hematochezia melena nausea vomit diarrhea. Related Data Home Medications ?Medication ?Instructions ?Recorded ?Confirmed acetaminophen 500 mg capsule 500 mg PO Q6H PRN 03/12/22 03/12/22 citalopram 20 mg tablet 20 mg PO DAILY 03/12/22 03/12/22 ferrous sulfate 325 mg (65 mg 325 mg PO DAILY 03/12/22 03/12/22 iron) tablet (FeroSul) levothyroxine 75 mcg tablet 75 mcg PO DAILY 03/12/22 03/12/22 magnesium oxide 400 mg (241.3 mg 400 mg PO BID 03/12/22 03/12/22 magnesium) tablet meclizine 12.5 mg tablet 12.5 mg PO TID PRN 03/12/22 03/12/22 thiamine HCl (vitamin B1) 100 mg 100 mg PO DAILY 03/12/22 03/12/22 tablet trazodone 50 mg tablet 50 mg PO HS 03/12/22 03/12/22 aripiprazole 15 mg tablet 15 mg PO DAILY 09/30/23 09/30/23 ibuprofen 600 mg tablet 600 mg PO Q6H PRN 09/30/23 09/30/23 melatonin 5 mg tablet 5 mg PO HS PRN 09/30/23 09/30/23 Previous Rx's ?Medication ?Instructions ?Recorded aspirin 81 mg tablet,delayed 81 mg PO DAILY #30 tabs 03/12/22 release (Adult Low Dose Aspirin) metoprolol succinate 25 mg 25 mg PO DAILY #30 tabs 03/15/24 tablet,extended release 24 hr (Toprol XL) sulfamethoxazole 400 1 tab PO BID 7 days #14 tabs 04/08/24 mg-trimethoprim 80 mg tablet (Bactrim) bacitracin 500 unit/gram topical 1 applic topical Q6H 14 days #144 05/20/24 packet ea carboxymethylcellulose sodium 1 % 1 drp ophthalmic (eye) Q2H 7 days 05/20/24 eye drops (Artificial Tears #15 mL (carboxymethylcellulose)) moxifloxacin 0.5 % eye drops 1 drp Eye-Left QID 7 days #3 mL 05/20/24 prednisolone acetate 1 % eye 1 drp Eye-Left QID 7 days #5 mL 05/20/24 drops,suspension Allergies Allergy/AdvReac Type Severity Reaction Status Date / Time No Known Allergies Allergy Verified 09/30/23 11:03 [facility] <MILLER Hester - Last Filed: 06/22/24 16:20> [facility] Disclaimer: The information contained in this section may have been updated after the patient was seen, as this information can be updated by other users. Medical History Afib Dbdmq-Slndfdwer-Czpjl (WPW) syndrome CAD (coronary artery disease), autologous vein bypass graft Palpitations Social History Smoking Status: Current every day smoker alcohol intake: never current occupational status: disabled Travel in the last 8 weeks: None Have you lived/traveled outside [place] in past 30 days?: No Contact w/someone who lives/traveled outside [place] past 30 days?: No Exposure to someone with infectious disease in past 14 days?: No Do you have a fever (greater than 100.4 F or 38 C)?: No Have you tested positive for COVID-19: No Exposed to someone with COVID-19 in past 14 days?: No Do you have a sore throat?: No Do you have a cough?: No Do you have any weakness?: No Do you have any diarrhea?: No Are you experiencing any unusual bleeding?: No Do you have any muscle aches/pain?: No Do you have any abdominal pain?: No Are you experiencing loss of taste or smell?: No Other Medical History Have you received the Pneumonia Vaccine: Yes <MILLER Hester - Last Filed: 06/22/24 16:20> ROS Obtained: Yes Systems reviewed as appropriate & no additional complaints except as documented Physical Exam <MILLER Hester - Last Filed: 06/22/24 16:20> General General appearance: alert and in no apparent distress Respiratory Respiratory exam: Present normal lung sounds bilaterally Cardiovascular Cardiovascular exam: Present regular rate Neurological Exam Neurological exam: Present alert and oriented X3 Medical Decision Making <MILLER Hester - Last Filed: 06/22/24 16:20> Medical Records Medical records reviewed: Yes I reviewed the patient's medical records. Screening: Per USPSTF and CDC recommendations, given the prevalence of disease in our region, it is our hospital?s policy to screen for HIV and viral Hepatitis for all patients aged 18 and over and those with ongoing risk factors. Dave Inquiry Pt receiving controlled substance: No Vital Signs: 06/22/24 14:52 06/22/24 14:52 06/22/24 16:16 Temperature 98.4 F 97.9 F 97.9 F Temperature Source Oral Oral Oral Pulse Rate 60 Pulse Rate [Radial] 63 Pulse Rate [Right] 88 Respiratory Rate 18 18 18 Blood Pressure 115/70 Blood Pressure [Right Arm] 145/58 H 135/57 L Blood Pressure Mean [Right Arm] 87 83 Blood Pressure Source Automatic Cuff Blood Pressure Source [Right Arm] Automatic Cuff Blood Pressure Position Sitting Blood Pressure Position [Right Arm] Sitting 02 Sat by Pulse Oximetry 96 97 Oxygen Delivery Method Room Air Room Air Room Air Orders (Tests/Meds): ORDERS Category Date Time Status HIV (1&2) Antibody Rapid Stat Lab 06/22/24 15:09 Ordered Hep C Ab with Reflex to RNA Stat Lab 06/22/24 15:09 Ordered Medical Decision Narrative: In summary patient is a 68-year-old male who presents to the emergency department for evaluation of his PEG site. Patient is hemodynamically stable upon arrival, afebrile. Physical exam reveals a well epithelialized but slightly irritated previous PEG site that is not draining any fluid. There is no induration edema signs of cellulitis.. Differential diagnosis includes considering cellulitis versus abscess versus fistulous track etc for there do not appear to be any red flags suggesting that this is other a well-healed PEG site. Initial workup will be were considered with labs and imaging however are deferred as there are no red flags suggesting this is anything other than normal previous PEG site. Initial interventions were considered however patient has no symptoms requiring intervention. Given this I had interactive discussion with the patient on how to care for the site including utilizing a nonocclusive dressing to prevent the site from irritation and/or scant drainage that occurred from the previous site. There is no evidence of pus or succus leaking from the site. Patient thus is appropriate for discharge with wound care instructions. <Eugene Kaur MD - Last Filed: 06/22/24 20:28> Vital Signs: 06/22/24 14:52 06/22/24 14:52 06/22/24 16:16 Temperature 98.4 F 97.9 F 97.9 F Temperature Source Oral Oral Oral Pulse Rate 60 Pulse Rate [Radial] 63 Pulse Rate [Right] 88 Respiratory Rate 18 18 18 Blood Pressure 115/70 Blood Pressure [Right Arm] 145/58 H 135/57 L Blood Pressure Mean [Right Arm] 87 83 Blood Pressure Source Automatic Cuff Blood Pressure Source [Right Arm] Automatic Cuff Blood Pressure Position Sitting Blood Pressure Position [Right Arm] Sitting 02 Sat by Pulse Oximetry 96 97 Oxygen Delivery Method Room Air Room Air Room Air Orders (Tests/Meds): ORDERS Category Date Time Status HIV (1&2) Antibody Rapid Stat Lab 06/22/24 15:09 Ordered Hep C Ab with Reflex to RNA Stat Lab 06/22/24 15:09 Ordered Medical Decision Narrative: In summary patient is a 68-year-old male who presents to the emergency department for evaluation of his PEG site. Patient is hemodynamically stable upon arrival, afebrile. Physical exam reveals a well epithelialized but slightly irritated previous PEG site that is not draining any fluid. There is no induration edema signs of cellulitis.. Differential diagnosis includes considering cellulitis versus abscess versus fistulous track etc for there do not appear to be any red flags suggesting that this is other a well-healed PEG site. Initial workup will be were considered with labs and imaging however are deferred as there are no red flags suggesting this is anything other than normal previous PEG site. Initial interventions were considered however patient has no symptoms requiring intervention. Given this I had interactive discussion with the patient on how to care for the site including utilizing a nonocclusive dressing to prevent the site from irritation and/or scant drainage that occurred from the previous site. There is no evidence of pus or succus leaking from the site. Patient thus is appropriate for discharge with wound care instructions. I was consulted by the HESHAM, and we discussed the complexity of the problems being addressed. I approved the treatment and management plan for this patient's care in the Emergency Department, thus performing a substantive portion of the medical decision making. Eugene Kaur MD Critical Care <MILLER Hester - Last Filed: 06/22/24 16:20> Critical Care Time Critical Care Time: No
--- NOTE | 2024-06-22 15:47 | PC.NURSE ---
ATTEMPTED TO [facility] FOR PT TO RETURN, NO ANSWER. CALLED PATEL FREITAS, SERVICE OR WORK DISPATCHER CHIEF OF [facility], NO ANSWER
[2024-06-22 16:16] VITALS: BP 115/70; PULSE 60; RESP 18; TEMP 36.6; O2SAT 99
== END 2024-06-22 16:20 | disposition home or self-care (01) ==
PROVIDERS: Emergency Provider Emergency Medicine; PCP Nurse Practitioner Acute Care
DX: Z00.8 Encounter for other general examination (principal)
CPT/HCPCS: 99282

== ENCOUNTER 2024-06-27 13:30 | Emergency (ER) | payer MEDICARE, OTHER, SELFPAY ==
[2024-06-27] VITALS (21 sets, daily range): BP systolic 79–146; BP diastolic 46–104; PULSE 42–70; RESP 11–22; TEMP 37.3; O2SAT 90–98; BMI 18.9
--- NOTE | 2024-06-27 14:27 | CT_ITS ---
FINAL REPORT TECHNIQUE: Axial images were obtained of the lumbar spine by computed tomography. Coronal and sagittal reconstruction process performed. This study was performed with techniques to keep radiation doses as low as reasonably achievable (ALARA). Individualized dose reduction techniques using automated exposure control or adjustment of mA and/or kV according to the patient's size were employed. CLINICAL HISTORY: Fall, back pain fall, back pain COMPARISON: None FINDINGS: CT LUMBAR SPINE: There is normal alignment of the lumbar vertebral bodies. There is marked narrowing of the L2-3 disc space level. There are moderate anterior osteophytes present at the L2-3, L3-4, and L4-5 levels. There is a rounded lucency in the superior endplate of L3 extending into the vertebral body, that may represent a large subchondral cyst, although a metastasis is not completely excluded. No acute fracture is identified. IMPRESSION: Degenerative change as described above, particularly at the L2-3 disc space level. Large rounded lucency in the superior endplate of L3 extending into the vertebral body, which may represent a large subchondral cyst, although a metastasis is not completely excluded. Nonemergent MRI may be helpful for further evaluation if indicated. Reviewed, Interpreted and Dictated by Frankie Garcia MD Transcribed by Lelia Adames Authenticated and [facility]
--- NOTE | 2024-06-27 14:27 | CT_ITS ---
FINAL REPORT TECHNIQUE: multiple axial CT images were performed from the foramen magnum to the vertex without enhancement. This study was performed with techniques to keep radiation doses as low as reasonably achievable (ALARA). Individualized dose reduction techniques using automated exposure control or adjustment of mA and/or kV according to the patient's size were employed. CLINICAL HISTORY: fall, head trauma COMPARISON: Prior head CT dated 11/22/2022 FINDINGS: The ventricles are moderately enlarged. There is diffuse atrophy. There are moderate periventricular white matter changes likely related to small vessel disease. There is no evidence of hemorrhage. No masses are identified. No extra-axial fluid is seen. There is discontinuity of the left mandibular ramus, with a 4.5 cm mass best seen on image #10 of series 3. This may represent a malignancy with pathologic fracture, or a hematoma with surrounding highly fragmented displaced mandibular fracture. There is extensive left maxillary sinus mucoperiosteal thickening present. IMPRESSION: Moderate intracranial atrophy and chronic changes. Discontinuity of the left mandibular ramus with a 4.5 cm mass as described, that may represent a malignancy with pathologic fracture or hematoma with surrounding highly fragmented displaced mandibular fracture. Correlation with contrast-enhanced CT would be helpful if indicated. Reviewed, Interpreted and Dictated by Frankie Garcia MD Transcribed by Lelia Adames Authenticated and [facility]
--- NOTE | 2024-06-27 14:27 | CT_ITS ---
FINAL REPORT TECHNIQUE: Axial images were obtained of the cervical spine by computed tomography. Coronal and sagittal reconstruction process performed. This study was performed with techniques to keep radiation doses as low as reasonably achievable (ALARA). Individualized dose reduction techniques using automated exposure control or adjustment of mA and/or kV according to the patient's size were employed. CLINICAL HISTORY: Trauma/fall COMPARISON: 11/22/2022 FINDINGS: CT CERVICAL SPINE Cervical vertebrae show normal height. There is moderate C4-5 disc space narrowing with endplate sclerosis and posterior osteophytes eccentric to the left. There is mild to moderate canal stenosis present at this level. There is no malalignment. The facets are properly aligned. There is a left parasagittal soft tissue density present in the expected location of the left mandible with absence of a large portion of the mandibular ramus on the left side. This finding is new since the prior CT examination of 11/22/2022. This mass is also seen on CT of the head from the same date. IMPRESSION: No acute bony abnormality of the cervical spine is present. Large left parasagittal soft tissue mass in the expected location of the left mandible, with absence of a large portion of the mandibular ramus on the left side. 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 Correlation with contrast-enhanced CT would be helpful for further evaluation. Reviewed, Interpreted and Dictated by Frankie Garcia MD Transcribed by Lelia Adames Authenticated and [facility]
--- NOTE | 2024-06-27 14:27 | CT_ITS ---
FINAL REPORT TECHNIQUE: Axial images were obtained of the thoracic spine by computed tomography. Coronal and sagittal reconstruction process performed. This study was performed with techniques to keep radiation doses as low as reasonably achievable (ALARA). Individualized dose reduction techniques using automated exposure control or adjustment of mA and/or kV according to the patient's size were employed. CLINICAL HISTORY: Fall, back pain COMPARISON: None FINDINGS: CT THORACIC SPINE: Thoracic vertebrae show normal height. Disc spaces are well-preserved. There is no malalignment. The facets are properly aligned. There are airspace opacities in the left lung base, pneumonia is not excluded. IMPRESSION: No bony abnormality is identified. Airspace opacities in the left lung base, pneumonia not excluded. Reviewed, Interpreted and Dictated by Frankie Garcia MD Transcribed by Lelia Adames Authenticated and [facility]
--- NOTE | 2024-06-27 14:27 | XR_ITS ---
FINAL REPORT CLINICAL HISTORY: Trauma; limited hx COMPARISON: None FINDINGS: The heart size is mildly enlarged. Chest port is present with the tip in the SVC. The mediastinum is normal. Coarse interstitial opacity in both lungs is probably chronic. There are no pleural effusions. There is no pneumothorax. No definite acute abnormality identified. IMPRESSION: No definite acute process. Reviewed, Interpreted and Dictated by Frankie Garcia MD Transcribed by Denice Gray Authenticated and [facility]
--- NOTE | 2024-06-27 14:28 | XR_ITS ---
FINAL REPORT CLINICAL HISTORY: Fall; limited hx COMPARISON: None FINDINGS: SINGLE VIEW PELVIS: A single view of the pelvis was obtained. There is no acute fracture or dislocation. Vizualized joint spaces are normally aligned. Soft tissues are unremarkable. IMPRESSION: No acute bony abnormality. Reviewed, Interpreted and Dictated by Frankie Garcia MD Transcribed by Denice Gray Authenticated and [facility]
--- NOTE | 2024-06-27 14:29 | ED_ITS ---
<Statement entered by Kelley Gray MD - 06/27/24 21:33> I was consulted by the HESHAM, and we discussed the complexity of the problems being addressed. I approved the treatment and management plan for this patient's care in the emergency department, thus performing a substantive portion of the medical decision making. Kelley Gray MD, FRANCINE, FACEP Discharge Plan Disposition Patient Disposition: Xfer Other Condition: Fair Chief Complaint: Skin/Abscess/Foreign Body Prescriptions Prescriptions: No Action trazodone 50 mg tablet 50 mg PO HS thiamine HCl (vitamin B1) 100 mg tablet 100 mg PO DAILY meclizine 12.5 mg tablet 12.5 mg PO TID PRN levothyroxine 75 mcg tablet 75 mcg PO DAILY citalopram 20 mg tablet 20 mg PO DAILY magnesium oxide 400 mg (241.3 mg magnesium) tablet 400 mg PO BID ferrous sulfate [FeroSul] 325 mg (65 mg iron) tablet 325 mg PO DAILY acetaminophen 500 mg capsule 500 mg PO Q6H PRN aspirin [Adult Low Dose Aspirin] 81 mg tablet,delayed release (DR/EC) 81 mg PO DAILY Qty: 30 2RF aripiprazole 15 mg tablet 15 mg PO DAILY ibuprofen 600 mg tablet 600 mg PO Q6H PRN melatonin 5 mg tablet 5 mg PO HS PRN metoprolol succinate [Toprol XL] 25 mg tablet extended release 24 hr 25 mg PO DAILY Qty: 30 5RF bacitracin 500 unit/gram packet 1 applic topical Q6H 14 Days Qty: 144 0RF Rx Instructions: apply to the left facial tomlin moxifloxacin 0.5 % drops 1 drp Eye-Left QID 7 Days Qty: 3 0RF prednisolone acetate 1 % drops,suspension 1 drp Eye-Left QID 7 Days Qty: 5 0RF Artificial Tears (cmc) 1 % drops 1 drp ophthalmic (eye) Q2H 7 Days Qty: 15 0RF sulfamethoxazole-trimethoprim [Bactrim] 400-80 mg tablet 1 tab PO BID 7 Days Qty: 14 0RF Referrals Follow up/Referrals: Provider,Referral, [Primary Care Provider] - See instructions Clinical Impressions Clinical Impression: Severe sepsis, Head and neck cancer, Acute hyponatremia, Acute hypokalemia Stand Alone Forms Stand Alone Forms: Transfer Record - ED Instructions Patient Instructions: DI for Skin Abscess Print Language Print Language: [place] Discharge ED Provider: Eugene Kaur General Adult HPI <MILLER Xiong - Last Filed: 06/27/24 21:10> General Chief complaint: Skin/Abscess/Foreign Body Stated complaint: WEAKNESS Time Seen by Provider: 06/27/24 14:13 Mode of Arrival: EMS Source of Information: Patient Limitations: No Limitations Description of Symptoms (Recalled from ER Triage Doc. by RN): pt presents to ED with c/o drainage from left cheek wound. pt reports pain on that side of face. History of Present Illness HPI narrative: 68-year-old male presents to the emergency department via EMS for multiple falls and weakness, patient had parent witnessed fall today he is at assisted living facility, he is alert oriented to person and place disoriented to time unsure of chronicity, patient tells me that he fell down some steps today . When asked how many he states at least 3 or 4 , he admits to loss of consciousness however sure if this is true regarding the patient mental status at this time. He endorses back pain. He denies any fever chills cough chest pain shortness of breath abdominal pain nausea vomiting constipation diarrhea urinary type symptomatology, denies hematuria melena hematochezia. He is a current everyday smoker, denies any alcohol use, admits to occasional marijuana use, past medical history consistent with facial/throat carcinoma, multiple falls, Txsmw-Dtcvlwaxc-Ioevx, coronary artery disease, status post CABG, hypothyroidism. Initial triage vitals notable for bradycardia otherwise unremarkable, patient is currently on supplemental oxygen therapy 2 L nasal cannula which is not his baseline. Onset (ago): day(s) Related Data Home Medications ?Medication ?Instructions ?Recorded ?Confirmed acetaminophen 500 mg capsule 500 mg PO Q6H PRN 03/12/22 03/12/22 citalopram 20 mg tablet 20 mg PO DAILY 03/12/22 03/12/22 ferrous sulfate 325 mg (65 mg 325 mg PO DAILY 03/12/22 03/12/22 iron) tablet (FeroSul) levothyroxine 75 mcg tablet 75 mcg PO DAILY 03/12/22 03/12/22 magnesium oxide 400 mg (241.3 mg 400 mg PO BID 03/12/22 03/12/22 magnesium) tablet meclizine 12.5 mg tablet 12.5 mg PO TID PRN 09/22/22 09/22/22 thiamine HCl (vitamin B1) 100 mg 100 mg PO DAILY 03/12/22 03/12/22 tablet trazodone 50 mg tablet 50 mg PO HS 03/12/22 03/12/22 aripiprazole 15 mg tablet 15 mg PO DAILY 09/30/23 09/30/23 ibuprofen 600 mg tablet 600 mg PO Q6H PRN 09/30/23 09/30/23 melatonin 5 mg tablet 5 mg PO HS PRN 09/30/23 09/30/23 Previous Rx's ?Medication ?Instructions ?Recorded aspirin 81 mg tablet,delayed 81 mg PO DAILY #30 tabs 03/12/22 release (Adult Low Dose Aspirin) metoprolol succinate 25 mg 25 mg PO DAILY #30 tabs 03/15/24 tablet,extended release 24 hr (Toprol XL) sulfamethoxazole 400 1 tab PO BID 7 days #14 tabs 04/08/24 mg-trimethoprim 80 mg tablet (Bactrim) bacitracin 500 unit/gram topical 1 applic topical Q6H 14 days #144 05/20/24 packet ea carboxymethylcellulose sodium 1 % 1 drp ophthalmic (eye) Q2H 7 days 05/20/24 eye drops (Artificial Tears #15 mL (carboxymethylcellulose)) moxifloxacin 0.5 % eye drops 1 drp Eye-Left QID 7 days #3 mL 05/20/24 prednisolone acetate 1 % eye 1 drp Eye-Left QID 7 days #5 mL 05/20/24 drops,suspension Allergies Allergy/AdvReac Type Severity Reaction Status Date / Time No Known Allergies Allergy Verified 09/30/23 11:03 [facility] <MILLER Xiong - Last Filed: 06/27/24 21:10> [facility] Disclaimer: The information contained in this section may have been updated after the patient was seen, as this information can be updated by other users. Medical History Afib Ptxqc-Gtmnbarhx-Okgwa (WPW) syndrome CAD (coronary artery disease), autologous vein bypass graft Palpitations Social History Smoking Status: Current every day smoker alcohol intake: never current occupational status: disabled Travel in the last 8 weeks: None Have you lived/traveled outside US in past 30 days?: No Contact w/someone who lives/traveled outside US past 30 days?: No Exposure to someone with infectious disease in past 14 days?: No Do you have a fever (greater than 100.4 F or 38 C)?: No Have you tested positive for COVID-19: No Exposed to someone with COVID-19 in past 14 days?: No Do you have a sore throat?: No Do you have a cough?: No Do you have any weakness?: No Do you have any diarrhea?: No Are you experiencing any unusual bleeding?: No Do you have any muscle aches/pain?: No Do you have any abdominal pain?: No Are you experiencing loss of taste or smell?: No Other Medical History Have you received the Pneumonia Vaccine: Yes <MILLER Xiong - Last Filed: 06/27/24 21:10> ROS Obtained: Yes All systems reviewed & no additional complaints except as documented Physical Exam <MILLER Xiong - Last Filed: 06/27/24 21:10> General General appearance: alert and in no apparent distress Head Head exam: atraumatic, normocephalic and other Eye Eye exam: Present PERRL and EOMI ENT ENT exam: Present mucous membranes moist and other (Some areas of obvious surgical excision of the patient's left face/jaw corresponding with undergoing mass/carcinoma of the face/throat, he has some maceration of the skin there but no erythema no evidence of any abscess or wound dehiscence) Neck Neck exam: Present normal inspection Chest Chest inspection: Present normal inspection and symmetric chest wall rise Respiratory Respiratory exam: Present normal lung sounds bilaterally; Absent respiratory distress Cardiovascular Cardiovascular exam: Present normal rhythm and bradycardia; Absent regular rate Abdominal Exam Abdominal exam: Present soft; Absent tenderness, guarding, rebound or rigidity Extremities Exam Extremities exam: Present normal inspection Back Exam Back exam: Present normal inspection and tenderness Comment: He has mid thoracic and lumbar spine paraspinal tenderness to palpation, no obvious deformity/step-offs, there is no spinal tenderness to palpation to the cervical lumbar thoracic spine Neurological Exam Neurological exam: Present alert and other (Appears to be at neurological baseline is alert oriented x 2 disoriented to time); Absent oriented X3 Psychiatric Psychiatric exam: Present normal affect Skin Skin exam: Present warm and dry Medical Decision Making <MILLER Xiong - Last Filed: 06/27/24 21:10> Medical Records Medical records reviewed: Yes I reviewed the patient's medical records. Screening: Per USPSTF and CDC recommendations, given the prevalence of disease in our region, it is our hospital?s policy to screen for HIV and viral Hepatitis for all patients aged 18 and over and those with ongoing risk factors. Dave Inquiry Pt receiving controlled substance: No Dave was queried for this patient: No Vital Signs: 06/27/24 13:30 06/27/24 16:25 06/27/24 16:30 Temperature 99.1 F Temperature Source Oral Pulse Rate 63 58 L Pulse Rate [Left Radial] 57 L Respiratory Rate 13 Blood Pressure 146/98 H 117/68 Blood Pressure [Right Arm] 96/61 L Blood Pressure Mean [Right Arm] 72 02 Sat by Pulse Oximetry 95 93 L 96 Oxygen Delivery Method Room Air Room Air Room Air 06/27/24 17:01 06/27/24 17:30 06/27/24 17:33 Temperature Temperature Source Pulse Rate 53 L 49 L 45 L Pulse Rate [Left Radial] Respiratory Rate Blood Pressure 102/55 L 79/48 L 83/50 L Blood Pressure [Right Arm] Blood Pressure Mean [Right Arm] 02 Sat by Pulse Oximetry 95 92 L 92 L Oxygen Delivery Method Room Air Room Air Room Air 06/27/24 17:34 06/27/24 17:39 06/27/24 17:45 Temperature Temperature Source Pulse Rate 45 L 44 L 42 L Pulse Rate [Left Radial] Respiratory Rate 13 Blood Pressure 85/46 L 80/51 L 86/49 L Blood Pressure [Right Arm] Blood Pressure Mean [Right Arm] 02 Sat by Pulse Oximetry 92 L 90 L 93 L Oxygen Delivery Method Room Air Room Air Room Air 06/27/24 18:00 06/27/24 18:15 06/27/24 18:32 Temperature Temperature Source Pulse Rate 50 L 46 L 43 L Pulse Rate [Left Radial] Respiratory Rate 15 12 22 Blood Pressure 98/55 L 100/72 L 130/72 Blood Pressure [Right Arm] Blood Pressure Mean [Right Arm] 02 Sat by Pulse Oximetry 94 L 93 L 90 L Oxygen Delivery Method Room Air Room Air Room Air 06/27/24 18:45 06/27/24 19:00 06/27/24 19:15 Temperature Temperature Source Pulse Rate 70 Pulse Rate [Left Radial] Respiratory Rate 12 11 L 13 Blood Pressure 141/65 H 133/94 H 138/104 H Blood Pressure [Right Arm] Blood Pressure Mean [Right Arm] 02 Sat by Pulse Oximetry 91 L Oxygen Delivery Method Room Air 06/27/24 19:33 06/27/24 20:06 06/27/24 20:30 Temperature Temperature Source Pulse Rate Pulse Rate [Left Radial] Respiratory Rate 15 14 16 Blood Pressure 143/75 H 88/62 L 84/51 L Blood Pressure [Right Arm] Blood Pressure Mean [Right Arm] 02 Sat by Pulse Oximetry Oxygen Delivery Method 06/27/24 20:35 06/27/24 20:45 Temperature Temperature Source Pulse Rate 49 L Pulse Rate [Left Radial] Respiratory Rate 12 12 Blood Pressure 114/69 109/73 L Blood Pressure [Right Arm] Blood Pressure Mean [Right Arm] 02 Sat by Pulse Oximetry 98 Oxygen Delivery Method Lab Data Lab results reviewed: Yes I reviewed the patient's lab results. Lab Results 06/27/24 14:35: WBC 20.7 H*, RBC 3.99 L, Hgb 10.8 L, Hct 33.8 L, MCV 84.7, MCH 27.1, MCHC 32.0, RDW 14.6, Plt Count 325, MPV 10.0, Neut % (Auto) 87.7 H, Lymph % (Auto) 4.8 L, [place] % (Auto) 6.7, Eos % (Auto) 0.0 L, Baso % (Auto) 0.2, Neut # (Auto) 18.1 H, Lymph # (Auto) 1.0, [place] # (Auto) 1.4 H, Eos # (Auto) 0.0, Baso # (Auto) 0.1, Total Counted 100, Neutrophils % (Manual) 85 H, Lymphocytes % (Manual) 10, Monocytes % (Manual) 5, Platelet Estimate Normal, RBC Morphology Normal, Sodium 133 L, Potassium 2.9 L*, Chloride 92 L, Carbon Dioxide 38 H, Anion Gap 5.9, BUN 14, Creatinine 0.80, Estimated Creat Clear 61, Estimated GFR 96, Est GFR ( Amer) 117, Glucose 99, Calcium 13.7 H*, Magnesium 2.0, Total Bilirubin 0.6, AST 38, ALT 16, Alkaline Phosphatase 110, Troponin I 0.05 H , NT-Pro-B Natriuret Pep 1650 H, Total Protein 6.1 L, Albumin 3.2 L, Globulin 2.9, Albumin/Globulin Ratio 1.1 06/27/24 20:42: Urine Color Yellow, Urine Appearance Clear, Urine pH 7.5, Ur Specific [place] 1.015, Urine Protein Negative, Urine Glucose (UA) Negative, Urine Ketones Negative, Urine Blood Negative, Urine Nitrate Negative, Urine Bilirubin Negative, Urine Urobilinogen 0.2, Ur Leukocyte Esterase Negative, Urine RBC 3-5, Urine WBC 20-50, Ur Squamous Epith Cells 3-5, Amorphous Sediment 3+, Urine Bacteria 1+, Urine Mucus 1+, Urine Opiates Screen Negative, Urine Methadone Screen Negative, Ur Barbituates Screen Negative, Ur Amphetamines Screen Negative, U Benzodiazepines Scrn Negative, Urine Cocaine Screen Negative, U Marijuana (THC) Screen Positive H 06/27/24 : Troponin I 0.05 H 06/27/24 14:35 06/27/24 14:35 Orders (Tests/Meds): ED MEDICATIONS Discontinued Medications Generic Name Dose Route Start Last Admin Trade Name Nina PRN Reason Stop Dose Admin Lactated Ringer's 1,000 mls @ 999 mls/hr 06/27/24 14:53 06/27/24 15:09 Lactated Ringer's 1000 Ml Bag IV 06/27/24 15:53 999 mls/hr .Q1H1M ONE Administration Ampicillin Sodium/Sulbactam 100 mls @ 200 mls/hr 06/27/24 14:53 06/27/24 15:32 Sodium 3 gm/ Sodium Chloride IV 06/27/24 14:54 200 mls/hr ONCE ONE Administration Vancomycin HCl 1,000 mg/ 250 mls @ 125 mls/hr 06/27/24 15:00 06/27/24 17:20 Sodium Chloride IV 06/27/24 16:59 125 mls/hr ONCE ONE Administration Lactated Ringer's 1,000 mls @ 999 mls/hr 06/27/24 17:41 06/27/24 17:43 Lactated Ringer's 1000 Ml Bag IV 06/27/24 18:41 999 mls/hr .Q1H1M ONE Administration Iopamidol 70 ml 06/27/24 15:39 06/27/24 15:47 Iopamidol-370 (76%);100ml Bottle IV 06/27/24 15:40 70 ml ONCE ONE Administration Miscellaneous 1 each 06/27/24 15:00 Vancomycin Consult Request NOTAPPLIC 07/27/24 14:59 [facility] Potassium Chloride 40 meq 06/27/24 17:30 06/27/24 17:44 Potassium Chloride 20meq Tab PO 06/27/24 17:31 40 meq ONCE ONE Administration Sodium Chloride 10 ml 06/27/24 15:39 06/27/24 15:47 Sodium Chloride 0.9% 10ml Syr (Rad Only) IV 06/27/24 15:40 10 ml ONCE ONE Administration Sodium Chloride 50 ml 06/27/24 15:39 06/27/24 15:47 0.9 % Sodium Chloride 50 Ml Vial IV 06/27/24 15:40 50 ml ONCE ONE Administration ORDERS Category Date Time Status CT abdomen pelvis w con Stat Cat Scan 06/27/24 14:[address] cervical spine wo con Stat Cat Scan 06/27/24 14:[address] head/brain wo con Stat Cat Scan 06/27/24 14:[address] lumbar spine wo con Stat Cat Scan 06/27/24 14:[address] thoracic spine wo con Stat Cat Scan 06/27/24 14:27 Completed CTA Chest [CT angio chest PE protocol] Stat Cat Scan 06/27/24 14:57 Completed Pelvis XR 1-2 views [XR pelvis 1-2V] Stat Exams 06/27/24 14:28 Completed XR chest portable Stat Exams 06/27/24 14:27 Completed Complete Blood Count Auto Diff Stat Lab 06/27/24 14:35 Completed Comprehensive Metabolic Panel Stat Lab 06/27/24 14:35 Completed Drug Screen,Urine Stat Lab 06/27/24 20:42 Results Hep C Ab with Reflex to RNA Stat Lab 06/27/24 14:35 Received Magnesium Stat Lab 06/27/24 14:35 Completed NT Pro Brain Natriuretic Pep. Stat Lab 06/27/24 14:35 Completed Troponin I Q3H Lab 06/27/24 Completed Troponin I Q3H Lab 06/27/24 20:30 Ordered Troponin I Stat Lab 06/27/24 14:35 Completed Urinalysis and Microscopic Stat Lab 06/27/24 20:42 Completed Blood Culture Stat Micro 06/27/24 15:15 Received Urine Culture Stat Micro 06/27/24 20:42 Received Medical Decision Narrative: 68-year-old male presents emergency department with weakness and multiple falls, differential diagnose include but not limited to closed head injury, acute kidney injury, acute UTI, cardiac arrhythmia, electrolyte disturbance, failure to thrive, acute dehydration, cute lumbar sacral strain, thoracic myofascial sprain, cervical spine fracture, thoracic spine fracture, lumbar spine fracture. I discussed patient case with the physician Dr. Kaur and Dr. Gray Will obtain basic laboratory studies UDS urinalysis magnesium level proBNP troponin urinalysis EKG chest x-ray pelvic x-ray CT head and CT of the cervical thoracic and lumbar spine without contrast for further evaluation as characterization. CBC is noted for leukocytosis at 20.7, anemia with hemoglobin at 10.8. Otherwise unremarkable CBC. Will give 1 L LR IV and IV Unasyn and IV vancomycin for leukocytosis. Also brought in the patient's differential/workup includes CT abdomen pelvis with contrast and CTA chest with and without contrast PE protocol for further evaluation as characterization Patient has mild hypokalemia 2.9, hypochloremia at 92, mild hyponatremia 133, will attempt replacement with p.o. potassium 40 mEq Hypocalcemia 13.7 Troponin is elevated 0.05, could be in the setting of severe sepsis I was consulted by the HESHAM, and we discussed the complexity of the problems being addressed. I approved the treatment and management plan for this patient's care in the Emergency Department, thus performing a substantive portion of the medical decision making. On my evaluation, patient appears about the same as he usually does. Has no acute complaints other than not feeling well. 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 No cervical spine, thoracic spine or lumbar spine abnormality. Given leukocytosis and neutrophilia as long as numerous electrolyte abnormalities, elevated troponin, concern for severe sepsis. Antibiosis and sepsis bolus was administered. Prior to final disposition, care handed off. CT angiograms also pending. Eugene Kaur MD I reviewed the patient's CT head without contrast along the corresponding radiologic report moderate intracranial atrophy and chronic changes discontinuity of the left mid to be the ramus with a 4.5 cm mass as described, may represent malignancy with a pathologic fracture hematoma with surrounding highly fragmented displacement ovular fracture. -The patient CT cervical spine without contrast along the corresponding radiologic report, no acute bony abnormalities cervical spine present, large left parasagittal soft tissue mass in the expected location of the left mandible with absence of large portion of the mandibular ramus on the left side, patient has apparent clinical history of prior carcinoma in this region may represent recurrent malignancy. I reviewed the patient's CT thoracic spine without contrast on the corresponding radiologic report no bony abnormality identified airspace opacity left lung base pneumonia not excluded. I reviewed the patient's CT lumbar spine without contrast along the corresponding radiologic report degenerative changes as described particularly the L2-L3 disc space large rounded lucency in the superior endplate of L3 extending to vertebral body which may represent large subchondral cyst although metastasis is not completely excluded. I reviewed the patient's CTA chest with and without contrast on the corresponding radiologic report there is a solid of changes in left lung base concerning for infection, no evidence for clinically relevant pulmonary arterial filling defect. I reviewed the patient's CT abdomen pelvis with contrast along the corresponding radiologic report, submitted clinical information states G-tube in place there is a tract for gastrostomy tube without an actual to be notified, please correlate clinically, cholelithiasis, large volume stool throughout the colon with significant rectal distention. Reviewed the patient's chest x-ray along the corresponding radiologic report no definitive acute process. I reviewed the patient's pelvic x-ray along the corresponding illogical report no acute bony abnormality. 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 I discussed this patient's case with Dr. Chadwick the [facility] transfer physician at 5:10 PM he is agreement with current transfer plan/treatment plan. Will be transferred to [facility] emergency departmen. Was notified by nursing staff that the patient has some hypotension, will treat with additional 1 L LR IV. ED is positive for marijuana, at approximately 9 PM EMS service was here to transfer patient to [facility] for higher level of care. Patient at the bedside and family over the phone were in agreement with current treatment plan/transfer plan. <Eugene Kaur MD - Last Filed: 06/27/24 15:34> Vital Signs: 06/27/24 13:30 06/27/24 16:25 06/27/24 16:30 Temperature 99.1 F Temperature Source Oral Pulse Rate 63 58 L Pulse Rate [Left Radial] 57 L Respiratory Rate 13 Blood Pressure 146/98 H 117/68 Blood Pressure [Right Arm] 96/61 L Blood Pressure Mean [Right Arm] 72 02 Sat by Pulse Oximetry 95 93 L 96 Oxygen Delivery Method Room Air Room Air Room Air 06/27/24 17:01 06/27/24 17:30 06/27/24 17:33 Temperature Temperature Source Pulse Rate 53 L 49 L 45 L Pulse Rate [Left Radial] Respiratory Rate Blood Pressure 102/55 L 79/48 L 83/50 L Blood Pressure [Right Arm] Blood Pressure Mean [Right Arm] 02 Sat by Pulse Oximetry 95 92 L 92 L Oxygen Delivery Method Room Air Room Air Room Air 06/27/24 17:34 06/27/24 17:39 06/27/24 17:45 Temperature Temperature Source Pulse Rate 45 L 44 L 42 L Pulse Rate [Left Radial] Respiratory Rate 13 Blood Pressure 85/46 L 80/51 L 86/49 L Blood Pressure [Right Arm] Blood Pressure Mean [Right Arm] 02 Sat by Pulse Oximetry 92 L 90 L 93 L Oxygen Delivery Method Room Air Room Air Room Air 06/27/24 18:00 06/27/24 18:15 06/27/24 18:32 Temperature Temperature Source Pulse Rate 50 L 46 L 43 L Pulse Rate [Left Radial] Respiratory Rate 15 12 22 Blood Pressure 98/55 L 100/72 L 130/72 Blood Pressure [Right Arm] Blood Pressure Mean [Right Arm] 02 Sat by Pulse Oximetry 94 L 93 L 90 L Oxygen Delivery Method Room Air Room Air Room Air 06/27/24 18:45 06/27/24 19:00 06/27/24 19:15 Temperature Temperature Source Pulse Rate 70 Pulse Rate [Left Radial] Respiratory Rate 12 11 L 13 Blood Pressure 141/65 H 133/94 H 138/104 H Blood Pressure [Right Arm] Blood Pressure Mean [Right Arm] 02 Sat by Pulse Oximetry 91 L Oxygen Delivery Method Room Air 06/27/24 19:33 06/27/24 20:06 06/27/24 20:30 Temperature Temperature Source Pulse Rate Pulse Rate [Left Radial] Respiratory Rate 15 14 16 Blood Pressure 143/75 H 88/62 L 84/51 L Blood Pressure [Right Arm] Blood Pressure Mean [Right Arm] 02 Sat by Pulse Oximetry Oxygen Delivery Method 06/27/24 20:35 06/27/24 20:45 Temperature Temperature Source Pulse Rate 49 L Pulse Rate [Left Radial] Respiratory Rate 12 12 Blood Pressure 114/69 109/73 L Blood Pressure [Right Arm] Blood Pressure Mean [Right Arm] 02 Sat by Pulse Oximetry 98 Oxygen Delivery Method Lab Data Lab Results 06/27/24 14:35: WBC 20.7 H*, RBC 3.99 L, Hgb 10.8 L, Hct 33.8 L, MCV 84.7, MCH 27.1, MCHC 32.0, RDW 14.6, Plt Count 325, MPV 10.0, Neut % (Auto) 87.7 H, Lymph % (Auto) 4.8 L, [place] % (Auto) 6.7, Eos % (Auto) 0.0 L, Baso % (Auto) 0.2, Neut # (Auto) 18.1 H, Lymph # (Auto) 1.0, [place] # (Auto) 1.4 H, Eos # (Auto) 0.0, Baso # (Auto) 0.1, Total Counted 100, Neutrophils % (Manual) 85 H, Lymphocytes % (Manual) 10, Monocytes % (Manual) 5, Platelet Estimate Normal, RBC Morphology Normal, Sodium 133 L, Potassium 2.9 L*, Chloride 92 L, Carbon Dioxide 38 H, Anion Gap 5.9, BUN 14, Creatinine 0.80, Estimated Creat Clear 61, Estimated GFR 96, Est GFR ( Amer) 117, Glucose 99, Calcium 13.7 H*, Magnesium 2.0, Total Bilirubin 0.6, AST 38, ALT 16, Alkaline Phosphatase 110, Troponin I 0.05 H , NT-Pro-B Natriuret Pep 1650 H, Total Protein 6.1 L, Albumin 3.2 L, Globulin 2.9, Albumin/Globulin Ratio 1.1 06/27/24 20:42: Urine Color Yellow, Urine Appearance Clear, Urine pH 7.5, Ur Specific [place] 1.015, Urine Protein Negative, Urine Glucose (UA) Negative, Urine Ketones Negative, Urine Blood Negative, Urine Nitrate Negative, Urine Bilirubin Negative, Urine Urobilinogen 0.2, Ur Leukocyte Esterase Negative, Urine RBC 3-5, Urine WBC 20-50, Ur Squamous Epith Cells 3-5, Amorphous Sediment 3+, Urine Bacteria 1+, Urine Mucus 1+, Urine Opiates Screen Negative, Urine Methadone Screen Negative, Ur Barbituates Screen Negative, Ur Amphetamines Screen Negative, U Benzodiazepines Scrn Negative, Urine Cocaine Screen Negative, U Marijuana (THC) Screen Positive H 06/27/24 : Troponin I 0.05 H Orders (Tests/Meds): ED MEDICATIONS Discontinued Medications Generic Name Dose Route Start Last Admin Trade Name Freq PRN Reason Stop Dose Admin Lactated Ringer's 1,000 mls @ 999 mls/hr 06/27/24 14:53 06/27/24 15:09 Lactated Ringer's 1000 Ml Bag IV 06/27/24 15:53 999 mls/hr .Q1H1M ONE Administration Ampicillin Sodium/Sulbactam 100 mls @ 200 mls/hr 06/27/24 14:53 06/27/24 15:32 Sodium 3 gm/ Sodium Chloride IV 06/27/24 14:54 200 mls/hr ONCE ONE Administration Vancomycin HCl 1,000 mg/ 250 mls @ 125 mls/hr 06/27/24 15:00 06/27/24 17:20 Sodium Chloride IV 06/27/24 16:59 125 mls/hr ONCE ONE Administration Lactated Ringer's 1,000 mls @ 999 mls/hr 06/27/24 17:41 06/27/24 17:43 Lactated Ringer's 1000 Ml Bag IV 06/27/24 18:41 999 mls/hr .Q1H1M ONE Administration Iopamidol 70 ml 06/27/24 15:39 06/27/24 15:47 Iopamidol-370 (76%);100ml Bottle IV 06/27/24 15:40 70 ml ONCE ONE Administration Miscellaneous 1 each 06/27/24 15:00 Vancomycin Consult Request NOTAPPLIC 07/27/24 14:59 [facility] Potassium Chloride 40 meq 06/27/24 17:30 06/27/24 17:44 Potassium Chloride 20meq Tab PO 06/27/24 17:31 40 meq ONCE ONE Administration Sodium Chloride 10 ml 06/27/24 15:39 06/27/24 15:47 Sodium Chloride 0.9% 10ml Syr (Rad Only) IV 06/27/24 15:40 10 ml ONCE ONE Administration Sodium Chloride 50 ml 06/27/24 15:39 06/27/24 15:47 0.9 % Sodium Chloride 50 Ml Vial IV 06/27/24 15:40 50 ml ONCE ONE Administration ORDERS Category Date Time Status CT abdomen pelvis w con Stat Cat Scan 06/27/24 14:[address] cervical spine wo con Stat Cat Scan 06/27/24 14:[address] head/brain wo con Stat Cat Scan 06/27/24 14:[address] lumbar spine wo con Stat Cat Scan 06/27/24 14:[address] thoracic spine wo con Stat Cat Scan 06/27/24 14:27 Completed CTA Chest [CT angio chest PE protocol] Stat Cat Scan 06/27/24 14:57 Completed Pelvis XR 1-2 views [XR pelvis 1-2V] Stat Exams 06/27/24 14:28 Completed XR chest portable Stat Exams 06/27/24 14:27 Completed Complete Blood Count Auto Diff Stat Lab 06/27/24 14:35 Completed Comprehensive Metabolic Panel Stat Lab 06/27/24 14:35 Completed Drug Screen,Urine Stat Lab 06/27/24 20:42 Results Hep C Ab with Reflex to RNA Stat Lab 06/27/24 14:35 Received Magnesium Stat Lab 06/27/24 14:35 Completed NT Pro Brain Natriuretic Pep. Stat Lab 06/27/24 14:35 Completed Troponin I Q3H Lab 06/27/24 Completed Troponin I Q3H Lab 06/27/24 20:30 Ordered Troponin I Stat Lab 06/27/24 14:35 Completed Urinalysis and Microscopic Stat Lab 06/27/24 20:42 Completed Blood Culture Stat Micro 06/27/24 15:15 Received Urine Culture Stat Micro 06/27/24 20:42 Received Medical Decision Narrative: 68-year-old male presents emergency department with weakness and multiple falls, differential diagnose include but not limited to closed head injury, acute kidney injury, acute UTI, cardiac arrhythmia, electrolyte disturbance, failure to thrive, acute dehydration, cute lumbar sacral strain, thoracic myofascial sprain, cervical spine fracture, thoracic spine fracture, lumbar spine fracture. I discussed patient case with the physician Dr. Kaur and Dr. Gray Will obtain basic laboratory studies UDS urinalysis magnesium level proBNP troponin urinalysis EKG chest x-ray pelvic x-ray CT head and CT of the cervical thoracic and lumbar spine without contrast for further evaluation as characterization. CBC is noted for leukocytosis at 20.7, anemia with hemoglobin at 10.8. Otherwise unremarkable CBC. Will give 1 L LR IV and IV Unasyn for leukocytosis. Also brought in the patient's differential/workup includes CT abdomen pelvis with contrast and CTA chest with and without contrast PE protocol for further evaluation as characterization Patient has mild hypokalemia 2.9, hypochloremia at 92, mild hyponatremia 133. Hypocalcemia 13.7 Troponin is elevated 0.05, could be in the setting of severe sepsis I was consulted by the HESHAM, and we discussed the complexity of the problems being addressed. I approved the treatment and management plan for this patient's care in the Emergency Department, thus performing a substantive portion of the medical decision making. On my evaluation, patient appears about the same as he usually does. Has no acute complaints other than not feeling well. 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 No cervical spine, thoracic spine or lumbar spine abnormality. Given leukocytosis and neutrophilia as long as numerous electrolyte abnormalities, elevated troponin, concern for severe sepsis. Antibiosis and sepsis bolus was administered. Prior to final disposition, care handed off. CT angiograms also pending. Eugene Kaur MD Critical Care <Eugene Kaur MD - Last Filed: 06/27/24 15:34> Critical Care Time Critical Care Time: Yes (ID, heme) Attestation: On 06/27/24, the high probability of a clinically significant, sudden or life threatening deterioration of the following system(s) required my full and direct attention, intervention and personal management. The time I documented below is in addition to time spent performing reported procedures but includes the following listed in this critical care notation. Total Time Total Critical Care Time: 45
--- NOTE | 2024-06-27 14:37 | PC.NURSE ---
PT TO RADIOLOGY
[2024-06-27 14:43] LABS: Basophils # 0.1 K/mm3 (0-0.2); Basophils % 0.2 % (0.1-2.0); Hematocrit 33.8 % (42.0-52.0); Hemoglobin 10.8 g/dL (14.1-18.0); Lymphocytes % 4.8 % (10-50); Mean Corpuscular Hemoglobin 27.1 pg (27.0-31.2); Mean Corpuscular Volume 84.7 fl (80-94); Monocytes # 1.4 K/mm3 (0.1-1.0); Monocytes % 6.7 % (1.7-9.3); Neutrophils # 18.1 K/mm3 (1.8-7.8); Neutrophils % 87.7 % (37.0-80.0); Platelet Count 325 K/mm3 (142-424); Red Blood Count 3.99 M/mm3 (4.60-6.20); Red Cell Distribution Width 14.6 % (11.5-17.5); White Blood Count 20.7 K/mm3 (4.8-10.8)
[2024-06-27 14:46] LABS: MANUAL DIFFERENTIAL MANUAL DIFFERENTIAL (MANUAL DIFF)
[2024-06-27 14:50] LABS: Albumin Level 3.2 g/dl (3.5-5.0); Chloride 92 mmol/L (98-107); Sodium 133 mmol/L (136-145)
[2024-06-27 14:52] LABS: Alanine Aminotransferase 16 U/L (12-78); Aspartate Amino Transferase 38 U/L (17-59); Blood Urea Nitrogen 14 mg/dl (9-20); Creatinine Clearance Estimated 61 mL/min (50-200); Estimated Glomerular Filt Rate 96 ml/min (>60); GFR (African American) 117 ML/MIN (>60)
[2024-06-27 14:53] LABS: Albumin/Globulin Ratio 1.1 (1.1-1.8); Alkaline Phosphatase 110 U/L (38-126); Anion Gap 5.9 mEq/L (5-15); Bilirubin,Total 0.6 mg/dl (0.2-1.3); Carbon Dioxide 38 mmol/L (22.0-30.0); Globulin 2.9 g/dL (1.3-3.2); Glucose 99 mg/dl (74-100); Total Protein,Serum 6.1 g/dl (6.3-8.2)
--- NOTE | 2024-06-27 14:54 | PC.NURSE ---
CRITICAL LABS 2.9K+ 13.7 CALCIUM. AGNES ORDONEZ PA-C NOTIFIED
[2024-06-27 14:55] LABS: Calcium 13.7 mg/dl (8.4-10.2); Potassium 2.9 mmoL/L (3.5-5.1)
--- NOTE | 2024-06-27 14:57 | CT_ITS ---
PROCEDURE INFORMATION: Exam: CTA Chest With Contrast Exam date and time: 06/27/2024 3:36 PM Age: 68 years old Clinical indication: Other: Sepsis, generalized weakness, fall TECHNIQUE: Imaging protocol: Computed tomographic angiography of the chest with contrast. Exam focused on the arteries. 3D rendering (Not supervised by radiologist): MIP and/or 3D reconstructed images were created by the technologist. Radiation optimization: All CT scans at this facility use at least one of these dose optimization techniques: automated exposure control; mA and/or kV adjustment per patient size (includes targeted exams where dose is matched to clinical indication); or iterative reconstruction. Contrast material: ISOVUE 370; Contrast volume: 70 ml; Contrast route: INTRAVENOUS (IV); COMPARISON: 1. CT ANGIO CHEST PE PROTOCOL 06/27/2024 3:36 PM 2. CR XR CHEST PORTABLE 06/27/2024 2:[address] ANGIO NECK 04/13/2024 11:24 AM FINDINGS: Tubes, catheters and devices: There is a right chest port in place catheter tip projects over the SVC. Pulmonary arteries: There is no evidence for clinically relevant pulmonary arterial filling defect. Tiny distal filling defects may be present but are of dubious clinical significance. Aorta: There is atherosclerotic disease of the visualized aorta and its major branch vessels. Lungs: Scattered areas of bronchial wall thickening which are likely chronic inflammatory. A few areas of subpleural reticulation are noted, nonspecific. There are some consolidative changes of the left lung base concerning for infection. Additional areas of consolidation are noted such as at the right lower lobe. Pleural spaces: Unremarkable. No pneumothorax. No pleural effusion. Heart: Unremarkable. No cardiomegaly. No pericardial effusion. Lymph nodes: Unremarkable. No enlarged lymph nodes. Intraperitoneal space: Please see the dedicated interpretation of abdomen and pelvis for findings in that region. Bones/joints: Fixation hardware is noted in the left proximal humerus. There is diffuse degenerative disease of the visualized osseous structures. Soft tissues: Unremarkable. IMPRESSION: 1. There are some consolidative changes of the left lung base concerning for infection. 2. Please see the dedicated interpretation of abdomen and pelvis for findings in that region. 3. No evidence for clinically relevant pulmonary arterial filling defect.
--- NOTE | 2024-06-27 14:57 | CT_ITS ---
PROCEDURE INFORMATION: Exam: CT Abdomen And Pelvis With Contrast Exam date and time: 06/27/2024 3:36 PM Age: 68 years old Clinical indication: Other: Sepsis, g-tube in place, weakness multiple falls TECHNIQUE: Imaging protocol: Computed tomography of the abdomen and pelvis with contrast. Radiation optimization: All CT scans at this facility use at least one of these dose optimization techniques: automated exposure control; mA and/or kV adjustment per patient size (includes targeted exams where dose is matched to clinical indication); or iterative reconstruction. Contrast material: ISOVUE; Contrast volume: 70 ml; Contrast route: IV; COMPARISON: 1. CT ABDOMEN PELVIS W CON 11/22/2022 9:02 PM 2. CR XR PELVIS 1-2V 06/27/2024 2:[address] ANGIO CHEST PE PROTOCOL 06/27/2024 3:36 PM FINDINGS: Limitations: Evaluation of intra-abdominal contents is limited by a paucity of intraperitoneal fat. Heart: There is a small pericardial effusion. Liver: Normal. Gallbladder and biliary ducts: There is cholelithiasis within an otherwise normal gallbladder. Pancreas: Normal. Spleen: Normal. Adrenal glands: The adrenal glands appear normal. Kidneys and ureters: There are bilateral simple appearing renal cysts. Stomach and bowel: There is large volume stool throughout the colon. There is moderate stool in the rectal vault. Appendix: No evidence of appendicitis. Intraperitoneal space: Unremarkable. Vasculature: The abdominal aorta and its major branches appear normal without evidence of aneurysm or stenosis. There are pelvic phleboliths. Lymph nodes: No lymphadenopathy. Urinary bladder: There is moderate distention of the urinary bladder. Reproductive: No acute process. Bones/joints: The visualized osseous structures of the abdomen and pelvis appear normal for patient age. Soft tissues: There is diffuse anasarca. Other findings: Please see the dedicated interpretation of the thorax for findings in that region. IMPRESSION: 1. Submitted clinical information states G-tube in place, there is a tract for gastrostomy tube without an actual tube identified. Please correlate clinically. 2. Cholelithiasis. 3. Large volume stool throughout the colon with significant rectal distension. 4. Please see the dedicated interpretation of the thorax for findings in that region. 5. Otherwise, incidental findings as above. COMMENTS: Consistent with the [employer]'s Incidental Findings Committee white paper (J Am Jacqueline Radiol 2018): Any incidental renal lesion less than 1 cm or classified as too small to characterize, or any incidental cystic renal lesion characterized as simple-appearing, is likely benign. No follow-up imaging is recommended for these lesions per consensus recommendations based on imaging criteria.
[2024-06-27 15:05] LABS: Troponin I 0.05 ng/ml (0.00-0.034)
--- NOTE | 2024-06-27 15:06 | ECG_ITS ---
APPROVED REPORT Exam: Resting ECG HR:58 bpm ECG Measurements Heart Rate 58 AXES LA 235 P 72 QRSd 153 QRS 85 QT 532 T 76 QTc 529 Conclusion SINUS BRADYCARDIA WITH FIRST DEGREE AV BLOCK WITH OCCASIONAL VENTRICULAR PREMATURE COMPLEXES RIGHT BUNDLE BRANCH BLOCK [120+ ms QRS DURATION, UPRIGHT V1, 40+ ms S IN I/aVL/V4/V5/V6] ABNORMAL ECG UNCONFIRMED REPORT Electronically signed by : JAMES AMANDA, 06/30/2024 05:47:48
[2024-06-27 15:07] LABS: Lymphocytes % 10 % (10-50); Monocytes % 5 % (2-9); Neutrophils % 85 % (42-76); Platelet Estimate Normal; RBC Morphology Normal; Total Cells Counted 100
[2024-06-27] MEDS: LACTATED RINGERS 1000ML 1,000 ML 999 ML IV ×2 (15:09→17:43)
[2024-06-27 15:25] LABS: NT Pro Brain Natriuretic Pep. 1650 pg/mL (0-125)
[2024-06-27] MEDS: AMPICILLIN/SULBACTAM 3 GM in 0.9 % SODIUM CHLORIDE 100 ML IV (15:32)
[2024-06-27] MEDS: IOPAMIDOL-370 (76%);100ML BOTTLE 70 ML IV (15:47)
[2024-06-27] MEDS: SODIUM CHLORIDE 0.9% 10ML SYR (RAD ONLY) 10 ML IV (15:47)
[2024-06-27] MEDS: 0.9 % SODIUM CHLORIDE 50 ML VIAL IV (15:47)
--- NOTE | 2024-06-27 16:56 | PC.NURSE ---
[facility] VIAN[facility] GARZA UPDATED BY AGNES ORDONEZ PA-C
--- NOTE | 2024-06-27 17:09 | PC.NURSE ---
[facility] CONTACTED FOR POSSIBLE TRANSFER
--- NOTE | 2024-06-27 17:13 | PC.NURSE ---
AGNES ORDONEZ SPEAKING WITH [facility]
[2024-06-27] MEDS: VANCOMYCIN HCL 1,000 MG in 0.9 % SODIUM CHLORIDE 250 ML 125 MG IV (17:20)
[2024-06-27] MEDS: POTASSIUM CHLORIDE 20MEQ TAB 40 MEQ PO (17:44)
[2024-06-27 18:11] LABS: Troponin I 0.05 ng/ml (0.00-0.034)
--- NOTE | 2024-06-27 18:58 | PC.NURSE ---
report called to ana m at [facility]
[2024-06-27 20:46] LABS: Microscopic, Urine URINE MICROSCOPIC (MICROSCOPIC)
[2024-06-27 20:47] LABS: Appearance,Urine CLEAR (Clear); Bilirubin,Urine Negative (Negative); Blood, Urine Negative (Negative); Color,Urine YELLOW (Yellow); Glucose,Urine (UA) Negative (Negative); Ketones,Urine Negative (Negative); Leukocyte Esterase,Urine Negative (Negative); Nitrate,Urine Negative (Negative); PH,Urine 7.5 (5.0-8.5); Protein,Urine Negative (Negative); Specific Gravity, Urine 1.015 (1.005-1.030); Urobilinogen,Urine 0.2 EU/dl (0.2)
[2024-06-27 21:02] LABS: Barbiturates Screen,Urine Negative ng/ml (<200)
[2024-06-27 21:03] LABS: Amphetamine/Metha Screen,Urine Negative ng/ml (<1000); Benzodiazepines Screen,Urine Negative ng/ml (<200)
[2024-06-27 21:04] LABS: Methadone Screen,Urine Negative ng/ml (<300)
[2024-06-27 21:05] LABS: Cannabinoid Screen,Urine Positive ng/ml (<50); Cocaine Screen,Urine Negative ng/ml (<300)
[2024-06-27 21:06] LABS: Amorphous Sediment,Urine 3+ /lpf; Bacteria,Urine 1+ /lpf; Mucus,Urine 1+ /lpf; Opiate Screen,Urine Negative ng/ml (<300); WBC,Urine 20-50 #/hpf (0-3)
[2024-06-27 21:07] LABS: Phencyclidine Screen,Urine Negative ng/ml (<25)
[2024-06-28 07:09] LABS: HCV Ab Non Reactive (Non Reactive)
== END 2024-06-27 21:21 | disposition other institution (70) ==
PROVIDERS: Physician Assistant; Emergency Provider Emergency Medicine
DX: E87.6 Hypokalemia (principal); E87.1 Hypo-osmolality and hyponatremia; C76.0 Malignant neoplasm of head, face and neck; A41.9 Sepsis, unspecified organism; R53.1 Weakness; R29.6 Repeated falls; M54.9 Dorsalgia, unspecified; W10.9XXA Fall (on) (from) unspecified stairs and steps, initial encounter; Z91.81 History of falling; Y93.89 Activity, other specified; Y92.098 Other place in other non-institutional residence as the place of occurrence of the external cause
CPT/HCPCS: 70450; 71045; 71275; 72125; 72128; 72131; 72170; 74177; 80053; 80307; 81001; 83735; 83880; 84484; 85007; 85025; 85027; 86803; 87040; 87086; 93005; 96361; 96365; 96366; 96367; 99291; J0295; J3370; J7050; J7120; Q9967